=== PATIENT | male | born 1960 | race Caucasian/White ===

== ENCOUNTER 2019-08-04 23:09 | Inpatient (IN) ==
[2019-08-05] MEDS ORDERED: MethylPREDNISolone 40 MG/ML VIAL IVP ONE (01:36)
[2019-08-05] MEDS ORDERED: Albuterol 2.5 MG/3 ML NEBULIZER IH PRN (01:36)
[2019-08-05] MEDS ORDERED: Naloxone 0.4 MG/ML INJ IVP PRN ×2 (01:36→16:59)
[2019-08-05] MEDS ORDERED: Nitroglycerin 0.4 MG TAB.SUBL SL PRN ×2 (01:36→16:59)
[2019-08-05] MEDS ORDERED: *HR* Heparin 5,000 UNIT/ML VIAL IVP PRN ×3 (01:36→16:59)
[2019-08-05] MEDS ORDERED: Ondansetron ODT 4 MG TAB.RAPDIS SL PRN (01:36)
[2019-08-05] MEDS ORDERED: Aspirin 325 MG TABLET PO ONE (01:36)
[2019-08-05] MEDS ORDERED: Heparin 25,000 UNIT/250 ML D5W 25,000 UNIT/250 ML IV.SOLN IVC SCH (01:45)
[2019-08-05] MEDS ORDERED: Furosemide 40 MG/4 ML VIAL IVP SCH ×2 (01:46→08:00)
[2019-08-05] MEDS ORDERED: cefTRIAXone 1,000 MG in Water for inj. (sterile) 10 ML IVP SCH (02:00)
[2019-08-05] MEDS: *HR* OxyCODONE/APAP 10/325 TABLET PO PRN ×5 (02:04→22:15)
[2019-08-05] MEDS: Ipratropium/Albuterol Neb 3 ML IH SCH ×3 (02:23→10:57)
[2019-08-05] MEDS ORDERED: Water for inj. (sterile) 20 ML IV ONE (02:37)
[2019-08-05 02:43] LABS: ABG Base Excess 5 mEq/L (-2 to 3); ABG HCO3 33 mEq/L (21-27); ABG Oxygen Saturation 66 % (95-98); ABG PCO2 63 mmHg (35-45); ABG PH 7.33 pH Units (7.32-7.45); ABG PO2 38 mmHg (85-104); ABG TCO2 35 mEq/L (20-26)
[2019-08-05 02:46] LABS: White Blood Count 5.6 K/mcL (4.3-11.1)
[2019-08-05 02:47] LABS: Basophils % 0.4 %; Eosinophils # 0.1 K/mcL (0.0-0.6); Eosinophils % 2.2 %; Hematocrit 42.2 % (37.5-50.1); Immature Granulocytes % 0.5 % (0-4); Lymphocytes # 1.4 K/mcL (0.6-4.6); Lymphocytes % 24.4 %; Mean Corpuscular HGB Conc 30.8 g/dL (31.6-35.5); Mean Corpuscular Hemoglobin 31.7 pg (28.0-33.3); Mean Corpuscular Volume 102.9 fL (83.0-100.0); Mean Platelet Volume 9.4 fL (9.4-12.4); Monocytes # 0.5 K/mcL (0.0-1.3); Monocytes % 9.3 %; Neutrophils # 3.5 K/mcL (1.6-8.9); Platelet Count 145 K/mcL (140-400); Red Cell Distribution Width 14.4 % (11.5-14.5); Segmented Neutrophils % 63.2 %
[2019-08-05 03:05] LABS: Alanine Aminotransferase 15 Units/L (7-52); Alkaline Phosphatase 56 Units/L (34-104); Aspartate Amino Transferase 7 Units/L (13-39); BUN/Creatinine Ratio 22 (6-26); Bilirubin,Total 0.4 mg/dL (0.3-1.0); Blood Urea Nitrogen 30 mg/dL (8-23); Calcium 9.2 mg/dL (8.6-10.3); Carbon Dioxide 29 mEq/L (23-29); Chloride 98 mEq/L (98-107); Cholesterol 120 mg/dL (< 200); Glucose 109 mg/dL (70-105); HDL Cholesterol 30 mg/dL (40-59); LDL Cholesterol,Calculated 56 mg/dL (0-99); Magnesium 1.8 mg/dL (1.6-2.6); Osmolality,Calculated 287 (280-300); Phosphorous 4.2 mg/dL (2.7-4.5); Potassium 4.8 mEq/L (3.5-5.1); Sodium 135 mEq/L (136-145); Triglycerides 171 mg/dL (< 150); eGFR For African Americans > 60 (> 60); eGFR For Non-African Americans 54 (> 60)
[2019-08-05 03:31] LABS: Bilirubin,Urine Negative (Negative); Blood,Urine Negative (Negative); Clarity,Urine Clear (Clear); Color,Urine Yellow (Yellow); Glucose,Urine (UA) Normal (Normal); Ketones,Urine Negative (Negative); Leukocyte Esterase,Urine Negative (Negative); Nitrite,Urine Negative (Negative); PH,Urine 5.5 pH Units (5.0-8.0); Protein,Urine Negative (Neg-Trace); Specific Gravity,Urine 1.016 (1.010-1.025); Urobilinogen,Urine Normal (Normal)
[2019-08-05 03:43] LABS: Amphetamine Screen,Urine Negative ng/mL (Cutoff=1000); Barbiturate Screen,Urine Negative ng/mL (Cutoff=200); Benzodiazepines Screen,Urine Negative ng/mL (Cutoff=200); Cannabinoid Screen,Urine Negative ng/mL (Cutoff = 50); Cocaine Screen,Urine Negative ng/mL (Cutoff= 300); Opiate Screen,Urine Positive ng/mL (Cutoff=300); Phencyclidine Screen,Urine Negative ng/mL (Cutoff=25)
[2019-08-05] MEDS ORDERED: Perflutren Lipid Microsphere 1.3 ML in 0.9 % Sodium Chloride 8.7 ML IVP ONE (07:26)
[2019-08-05 08:59] LABS: Estimated Average Glucose 131 mg/dl
[2019-08-05] MEDS ORDERED: predniSONE 20 MG TABLET PO SCH (09:00)
[2019-08-05] MEDS ORDERED: Levalbuterol Neb 1.25 MG/3 ML IH PRN (09:57)
[2019-08-05] MEDS ORDERED: D5% in Water 1,000 ML IVC PRN (16:59)
[2019-08-05] MEDS ORDERED: Dextrose Gel 15 GM/37.5 ML TUBE PO PRN ×2 (16:59)
[2019-08-05] MEDS ORDERED: *HR* Dextrose 50 % in Water (Syg) 50 ML SYRINGE IVP PRN (16:59)
[2019-08-05] MEDS: Furosemide 40 MG/4 ML VIAL IVP SCH (18:01)
[2019-08-05] MEDS: Insulin LISPRO 300 UNITS/3 ML VIAL SQ SCH ×2 (18:05→21:33)
[2019-08-05] MEDS: Heparin 25,000 UNIT/250 ML D5W 25,000 UNIT/250 ML IV.SOLN IVC SCH ×2 (18:06→20:44)
[2019-08-05] MEDS: *HR* Heparin 5,000 UNIT/ML VIAL IVP PRN (18:13)
[2019-08-05 18:55] LABS: Estimated Average Glucose 131 mg/dl
[2019-08-05] MEDS ORDERED: cefTRIAXone 1,000 MG in 0.9 % Sodium Chloride Mini Bag 100 ML IVPB SCH (19:00)
[2019-08-05] MEDS: Budesonide/Formoterol 160/4.5 1 PUFF INH IH SCH (20:32)
[2019-08-05] MEDS: Levalbuterol Neb 1.25 MG/3 ML IH PRN (20:42)
[2019-08-06] MEDS: *HR* Heparin 5,000 UNIT/ML VIAL IVP PRN ×3 (01:34→17:07)
[2019-08-06] MEDS: *HR* OxyCODONE/APAP 10/325 TABLET PO PRN ×5 (02:18→22:52)
[2019-08-06] MEDS: Budesonide/Formoterol 160/4.5 1 PUFF INH IH SCH ×2 (07:20→20:24)
[2019-08-06] MEDS: Levalbuterol Neb 1.25 MG/3 ML IH PRN ×2 (07:20→12:45)
[2019-08-06] MEDS: predniSONE 20 MG TABLET PO SCH (08:47)
[2019-08-06] MEDS: Furosemide 40 MG/4 ML VIAL IVP SCH ×2 (08:48→17:06)
[2019-08-06] MEDS: Fluticasone Propionate Nasal 50 MCG/SPRAY BOTTLE NS SCH (08:49)
[2019-08-06] MEDS: Insulin LISPRO 300 UNITS/3 ML VIAL SQ SCH ×4 (08:50→20:49)
[2019-08-06 09:22] LABS: Hematocrit 42.6 % (37.5-50.1); Hemoglobin 13.2 g/dL (12.9-16.9); Mean Corpuscular Hemoglobin 31.9 pg (28.0-33.3); Mean Corpuscular Volume 102.9 fL (83.0-100.0); Mean Platelet Volume 9.3 fL (9.4-12.4); Platelet Count 134 K/mcL (140-400); Red Blood Count 4.14 M/mcL (4.19-5.50); Red Cell Distribution Width 14.3 % (11.5-14.5); White Blood Count 4.3 K/mcL (4.3-11.1)
[2019-08-06 09:44] LABS: BUN/Creatinine Ratio 29 (6-26); Blood Urea Nitrogen 33 mg/dL (8-23); Calcium 9.2 mg/dL (8.6-10.3); Carbon Dioxide 32 mEq/L (23-29); Chloride 97 mEq/L (98-107); Glucose 138 mg/dL (70-105); Osmolality,Calculated 295 (280-300); Potassium 4.3 mEq/L (3.5-5.1); Sodium 138 mEq/L (136-145); eGFR For African Americans > 60 (> 60); eGFR For Non-African Americans > 60 (> 60)
[2019-08-06] MEDS: Heparin 25,000 UNIT/250 ML D5W 25,000 UNIT/250 ML IV.SOLN IVC SCH ×2 (10:19→21:09)
[2019-08-06] MEDS ORDERED: NON-FORMULARY MEDICATION 1 EACH EACH (Gabapentin [Neurontin] 800 MG) PO SCH (15:15)
[2019-08-06] MEDS: Gabapentin 400 MG CAPSULE PO SCH ×2 (17:07→20:43)
[2019-08-06] MEDS ORDERED: *HR* Warfarin 5 MG TABLET PO ONE (18:00)
[2019-08-06] MEDS ORDERED: Warfarin perPT PO PRN (18:00)
[2019-08-07] MEDS: *HR* OxyCODONE/APAP 10/325 TABLET PO PRN ×5 (03:58→21:48)
[2019-08-07 04:43] LABS: ABG Base Excess 12 mEq/L (-2 to 3); ABG HCO3 40 mEq/L (21-27); ABG Oxygen Saturation 90 % (95-98); ABG PCO2 67 mmHg (35-45); ABG PH 7.39 pH Units (7.32-7.45); ABG PO2 63 mmHg (85-104); ABG TCO2 42 mEq/L (20-26)
[2019-08-07 06:20] LABS: Basophils % 0.2 %; Eosinophils # 0.1 K/mcL (0.0-0.6); Eosinophils % 1.4 %; Hemoglobin 13.3 g/dL (12.9-16.9); Immature Granulocytes % 0.5 % (0-4); Lymphocytes # 0.9 K/mcL (0.6-4.6); Lymphocytes % 21.1 %; Mean Corpuscular HGB Conc 30.2 g/dL (31.6-35.5); Mean Corpuscular Hemoglobin 31.5 pg (28.0-33.3); Mean Corpuscular Volume 104.3 fL (83.0-100.0); Monocytes # 0.5 K/mcL (0.0-1.3); Monocytes % 12.2 %; Neutrophils # 2.8 K/mcL (1.6-8.9); Platelet Count 138 K/mcL (140-400); Prothrombin Time 11.5 Seconds (9.4-12.1); Red Blood Count 4.22 M/mcL (4.19-5.50); Red Cell Distribution Width 14.4 % (11.5-14.5); Segmented Neutrophils % 64.6 %; White Blood Count 4.3 K/mcL (4.3-11.1)
[2019-08-07 06:41] LABS: BUN/Creatinine Ratio 30 (6-26); Blood Urea Nitrogen 35 mg/dL (8-23); Calcium 9.5 mg/dL (8.6-10.3); Carbon Dioxide 36 mEq/L (23-29); Chloride 97 mEq/L (98-107); Glucose 109 mg/dL (70-105); Osmolality,Calculated 301 (280-300); Potassium 4.4 mEq/L (3.5-5.1); Sodium 141 mEq/L (136-145); eGFR For African Americans > 60 (> 60); eGFR For Non-African Americans > 60 (> 60)
[2019-08-07] MEDS: Heparin 25,000 UNIT/250 ML D5W 25,000 UNIT/250 ML IV.SOLN IVC SCH (06:45)
[2019-08-07] MEDS: Budesonide/Formoterol 160/4.5 1 PUFF INH IH SCH ×2 (07:23→20:04)
[2019-08-07] MEDS: Tiotropium 18 MCG inhalation IH SCH (07:23)
[2019-08-07] MEDS: Levalbuterol Neb 1.25 MG/3 ML IH PRN (07:31)
[2019-08-07] MEDS: Azithromycin 250 MG TABLET PO SCH (09:33)
[2019-08-07] MEDS: Furosemide 40 MG/4 ML VIAL IVP SCH ×2 (09:33→17:28)
[2019-08-07] MEDS: Fluticasone Propionate Nasal 50 MCG/SPRAY BOTTLE NS SCH (09:33)
[2019-08-07] MEDS: Gabapentin 400 MG CAPSULE PO SCH ×4 (09:34→21:48)
[2019-08-07] MEDS: predniSONE 20 MG TABLET PO SCH (09:34)
[2019-08-07] MEDS: Insulin LISPRO 300 UNITS/3 ML VIAL SQ SCH ×4 (09:34→23:37)
[2019-08-07] MEDS ORDERED: *HR* Warfarin 7.5 MG TABLET PO ONE (18:00)
[2019-08-08] MEDS: Heparin 25,000 UNIT/250 ML D5W 25,000 UNIT/250 ML IV.SOLN IVC SCH ×2 (05:39→14:38)
[2019-08-08] MEDS: *HR* OxyCODONE/APAP 10/325 TABLET PO PRN ×5 (05:41→23:07)
[2019-08-08 06:20] LABS: Basophils % 0.3 %; Eosinophils % 1.2 %; Hematocrit 42.4 % (37.5-50.1); Hemoglobin 13.2 g/dL (12.9-16.9); Immature Granulocytes % 0.6 % (0-4); Lymphocytes # 0.9 K/mcL (0.6-4.6); Lymphocytes % 27.5 %; Mean Corpuscular HGB Conc 31.1 g/dL (31.6-35.5); Mean Corpuscular Hemoglobin 31.1 pg (28.0-33.3); Mean Platelet Volume 9.2 fL (9.4-12.4); Monocytes # 0.4 K/mcL (0.0-1.3); Monocytes % 10.4 %; Platelet Count 155 K/mcL (140-400); Red Blood Count 4.24 M/mcL (4.19-5.50); Red Cell Distribution Width 14.1 % (11.5-14.5); White Blood Count 3.4 K/mcL (4.3-11.1)
[2019-08-08 06:24] LABS: Prothrombin Time 11.7 Seconds (9.4-12.1)
[2019-08-08] MEDS: *HR* Heparin 5,000 UNIT/ML VIAL IVP PRN (06:41)
[2019-08-08 07:09] LABS: BUN/Creatinine Ratio 28 (6-26); Blood Urea Nitrogen 32 mg/dL (8-23); Calcium 9.5 mg/dL (8.6-10.3); Carbon Dioxide 36 mEq/L (23-29); Chloride 95 mEq/L (98-107); Glucose 101 mg/dL (70-105); Osmolality,Calculated 299 (280-300); Potassium 4.2 mEq/L (3.5-5.1); Sodium 141 mEq/L (136-145); eGFR For African Americans > 60 (> 60); eGFR For Non-African Americans > 60 (> 60)
[2019-08-08] MEDS: Tiotropium 18 MCG inhalation IH SCH (07:55)
[2019-08-08] MEDS: Budesonide/Formoterol 160/4.5 1 PUFF INH IH SCH (07:55)
[2019-08-08] MEDS: Fluticasone Propionate Nasal 50 MCG/SPRAY BOTTLE NS SCH (08:42)
[2019-08-08] MEDS: Furosemide 40 MG/4 ML VIAL IVP SCH (08:42)
[2019-08-08] MEDS: predniSONE 20 MG TABLET PO SCH (08:43)
[2019-08-08] MEDS: Azithromycin 250 MG TABLET PO SCH (08:43)
[2019-08-08] MEDS: Gabapentin 400 MG CAPSULE PO SCH ×4 (08:44→21:16)
[2019-08-08] MEDS: Insulin LISPRO 300 UNITS/3 ML VIAL SQ SCH ×4 (08:44→21:16)
[2019-08-08] MEDS ORDERED: Albuterol 2.5 MG/3 ML NEBULIZER IH PRN (09:14)
[2019-08-08] MEDS: Ipratropium/Albuterol Neb 3 ML IH SCH ×3 (11:03→20:07)
[2019-08-08] MEDS ORDERED: *HR* Warfarin 7.5 MG TABLET PO ONE (18:00)
[2019-08-09] MEDS: Ipratropium/Albuterol Neb 3 ML IH SCH ×7 (00:10→23:34)
[2019-08-09] MEDS: Budesonide/Formoterol 160/4.5 1 PUFF INH IH SCH ×3 (00:10→20:05)
[2019-08-09] MEDS: Heparin 25,000 UNIT/250 ML D5W 25,000 UNIT/250 ML IV.SOLN IVC SCH ×3 (00:14→20:43)
[2019-08-09] MEDS: *HR* OxyCODONE/APAP 10/325 TABLET PO PRN ×5 (05:25→23:29)
[2019-08-09 05:30] LABS: Basophils % 0.5 %; Eosinophils % 1.1 %; Hematocrit 42.4 % (37.5-50.1); Immature Granulocytes % 0.5 % (0-4); Mean Corpuscular HGB Conc 30.7 g/dL (31.6-35.5); Mean Corpuscular Hemoglobin 31.4 pg (28.0-33.3); Mean Corpuscular Volume 102.4 fL (83.0-100.0); Monocytes # 0.4 K/mcL (0.0-1.3); Monocytes % 9.4 %; Neutrophils # 2.2 K/mcL (1.6-8.9); Platelet Count 163 K/mcL (140-400); Red Blood Count 4.14 M/mcL (4.19-5.50); Red Cell Distribution Width 13.8 % (11.5-14.5); Segmented Neutrophils % 60.5 %; White Blood Count 3.7 K/mcL (4.3-11.1)
[2019-08-09 05:49] LABS: BUN/Creatinine Ratio 29 (6-26); Blood Urea Nitrogen 33 mg/dL (8-23); Calcium 9.6 mg/dL (8.6-10.3); Carbon Dioxide 36 mEq/L (23-29); Chloride 94 mEq/L (98-107); Glucose 124 mg/dL (70-105); Osmolality,Calculated 293 (280-300); Potassium 4.3 mEq/L (3.5-5.1); Sodium 137 mEq/L (136-145); eGFR For African Americans > 60 (> 60); eGFR For Non-African Americans > 60 (> 60)
[2019-08-09 06:03] LABS: INR 1.2; Prothrombin Time 13.3 Seconds (9.4-12.1)
[2019-08-09] MEDS: Insulin LISPRO 300 UNITS/3 ML VIAL SQ SCH ×4 (07:39→20:42)
[2019-08-09] MEDS: Azithromycin 250 MG TABLET PO SCH (07:50)
[2019-08-09] MEDS: predniSONE 20 MG TABLET PO SCH (07:50)
[2019-08-09] MEDS: Furosemide 40 MG/4 ML VIAL IVP SCH (07:50)
[2019-08-09] MEDS: Gabapentin 400 MG CAPSULE PO SCH ×4 (07:50→20:40)
[2019-08-09] MEDS: Fluticasone Propionate Nasal 50 MCG/SPRAY BOTTLE NS SCH (08:00)
[2019-08-09] MEDS: Acetylcysteine 10% 2 ML INHSOL IH SCH ×3 (15:26→23:35)
[2019-08-09 15:55] LABS: Adenovirus Not Detected (Not Detect); Bordetella Pertussis Not Detected (Not Detect); Chlamydophila pneumoniae Not Detected (Not Detect); Coronavirus 229E Not Detected (Not Detect); Coronavirus HKU1 Not Detected (Not Detect); Coronavirus NL63 Not Detected (Not Detect); Coronavirus OC43 Not Detected (Not Detect); Human Metapneumovirus Not Detected (Not Detect); Human Rhinovirus/Enterovirus Not Detected (Not Detect); Influenza A Subtype 2009 H1 Not Detected (Not Detect); Influenza B Not Detected (Not Detect); Mycoplasma pneumoniae Not Detected (Not Detect); Parainfluenza Virus 1 Not Detected (Not Detect); Parainfluenza Virus 2 Not Detected (Not Detect); Parainfluenza Virus 3 Not Detected (Not Detect); Parainfluenza Virus 4 Not Detected (Not Detect); Respiratory Syncytial Virus Not Detected (Not Detect)
[2019-08-09] MEDS ORDERED: *HR* Warfarin 7.5 MG TABLET PO ONE (18:00)
[2019-08-09] MEDS: *HR* Heparin 5,000 UNIT/ML VIAL IVP PRN (20:50)
[2019-08-09] MEDS: Piperacillin/Tazobactam 3.375 GM in 0.9 % Sodium Chloride Mini Bag 100 ML IVPB SCH (22:14)
[2019-08-10] MEDS: Ipratropium/Albuterol Neb 3 ML IH SCH ×6 (04:12→23:06)
[2019-08-10] MEDS: Acetylcysteine 10% 2 ML INHSOL IH SCH ×6 (04:12→23:07)
[2019-08-10] MEDS: *HR* OxyCODONE/APAP 10/325 TABLET PO PRN ×5 (04:56→22:36)
[2019-08-10] MEDS: Piperacillin/Tazobactam 3.375 GM in 0.9 % Sodium Chloride Mini Bag 100 ML IVPB SCH ×3 (04:56→20:49)
[2019-08-10] MEDS: Heparin 25,000 UNIT/250 ML D5W 25,000 UNIT/250 ML IV.SOLN IVC SCH ×3 (05:38→20:58)
[2019-08-10 06:16] LABS: BUN/Creatinine Ratio 33 (6-26); Blood Urea Nitrogen 34 mg/dL (8-23); Calcium 9.6 mg/dL (8.6-10.3); Carbon Dioxide 34 mEq/L (23-29); Chloride 96 mEq/L (98-107); Glucose 116 mg/dL (70-105); Osmolality,Calculated 297 (280-300); Potassium 4.6 mEq/L (3.5-5.1); Sodium 139 mEq/L (136-145); eGFR For African Americans > 60 (> 60); eGFR For Non-African Americans > 60 (> 60)
[2019-08-10 06:20] LABS: INR 1.3; Prothrombin Time 15.1 Seconds (9.4-12.1)
[2019-08-10] MEDS: Budesonide/Formoterol 160/4.5 1 PUFF INH IH SCH ×2 (07:35→20:09)
[2019-08-10] MEDS: Insulin LISPRO 300 UNITS/3 ML VIAL SQ SCH ×4 (09:30→20:50)
[2019-08-10] MEDS: Gabapentin 400 MG CAPSULE PO SCH ×4 (09:36→20:49)
[2019-08-10] MEDS: Fluticasone Propionate Nasal 50 MCG/SPRAY BOTTLE NS SCH (09:37)
[2019-08-10] MEDS: predniSONE 20 MG TABLET PO SCH (09:37)
[2019-08-10] MEDS ORDERED: *HR* Warfarin 7.5 MG TABLET PO ONE (18:00)
[2019-08-11 02:36] LABS: INR 1.5; Prothrombin Time 16.6 Seconds (9.4-12.1)
[2019-08-11 02:41] LABS: BUN/Creatinine Ratio 28 (6-26); Blood Urea Nitrogen 31 mg/dL (8-23); Calcium 9.7 mg/dL (8.6-10.3); Carbon Dioxide 32 mEq/L (23-29); Chloride 97 mEq/L (98-107); Glucose 134 mg/dL (70-105); Osmolality,Calculated 291 (280-300); Sodium 136 mEq/L (136-145); eGFR For African Americans > 60 (> 60); eGFR For Non-African Americans > 60 (> 60)
[2019-08-11] MEDS: Ipratropium/Albuterol Neb 3 ML IH SCH ×6 (04:39→23:28)
[2019-08-11] MEDS: Acetylcysteine 10% 2 ML INHSOL IH SCH ×6 (04:39→23:28)
[2019-08-11] MEDS: *HR* OxyCODONE/APAP 10/325 TABLET PO PRN ×5 (04:47→22:02)
[2019-08-11] MEDS: Piperacillin/Tazobactam 3.375 GM in 0.9 % Sodium Chloride Mini Bag 100 ML IVPB SCH ×3 (04:47→20:27)
[2019-08-11] MEDS: Heparin 25,000 UNIT/250 ML D5W 25,000 UNIT/250 ML IV.SOLN IVC SCH ×3 (04:58→22:02)
[2019-08-11] MEDS: Insulin LISPRO 300 UNITS/3 ML VIAL SQ SCH ×4 (07:17→20:28)
[2019-08-11] MEDS: predniSONE 20 MG TABLET PO SCH (07:41)
[2019-08-11] MEDS: Gabapentin 400 MG CAPSULE PO SCH ×4 (07:42→20:27)
[2019-08-11] MEDS: Fluticasone Propionate Nasal 50 MCG/SPRAY BOTTLE NS SCH (07:42)
[2019-08-11] MEDS: Budesonide/Formoterol 160/4.5 1 PUFF INH IH SCH ×2 (07:47→20:15)
[2019-08-11] MEDS: Furosemide 40 MG/4 ML VIAL IVP SCH (09:48)
[2019-08-11] MEDS ORDERED: *HR* Warfarin 7.5 MG TABLET PO ONE (18:00)
[2019-08-12] MEDS: Ipratropium/Albuterol Neb 3 ML IH SCH ×6 (04:43→23:42)
[2019-08-12] MEDS: Acetylcysteine 10% 2 ML INHSOL IH SCH ×6 (04:44→23:42)
[2019-08-12] MEDS: *HR* OxyCODONE/APAP 10/325 TABLET PO PRN ×5 (05:02→21:46)
[2019-08-12] MEDS: Piperacillin/Tazobactam 3.375 GM in 0.9 % Sodium Chloride Mini Bag 100 ML IVPB SCH (05:02)
[2019-08-12 05:36] LABS: INR 1.7; Prothrombin Time 19.2 Seconds (9.4-12.1)
[2019-08-12 05:55] LABS: BUN/Creatinine Ratio 28 (6-26); Blood Urea Nitrogen 31 mg/dL (8-23); Calcium 9.3 mg/dL (8.6-10.3); Carbon Dioxide 36 mEq/L (23-29); Chloride 96 mEq/L (98-107); Glucose 133 mg/dL (70-105); Osmolality,Calculated 294 (280-300); Potassium 4.6 mEq/L (3.5-5.1); Sodium 138 mEq/L (136-145); eGFR For African Americans > 60 (> 60); eGFR For Non-African Americans > 60 (> 60)
[2019-08-12] MEDS: Budesonide/Formoterol 160/4.5 1 PUFF INH IH SCH ×2 (07:40→20:10)
[2019-08-12] MEDS: Furosemide 40 MG/4 ML VIAL IVP SCH (08:07)
[2019-08-12] MEDS: Gabapentin 400 MG CAPSULE PO SCH ×4 (08:08→21:46)
[2019-08-12] MEDS: Insulin LISPRO 300 UNITS/3 ML VIAL SQ SCH ×4 (08:08→21:46)
[2019-08-12] MEDS: predniSONE 20 MG TABLET PO SCH (08:08)
[2019-08-12] MEDS: Fluticasone Propionate Nasal 50 MCG/SPRAY BOTTLE NS SCH (08:08)
[2019-08-12] MEDS: Heparin 25,000 UNIT/250 ML D5W 25,000 UNIT/250 ML IV.SOLN IVC SCH ×2 (08:13→18:37)
[2019-08-12] MEDS ORDERED: Piperacillin/Tazobactam 3.375 GM in 0.9 % Sodium Chloride Mini Bag 100 ML IVPB SCH (11:00)
[2019-08-12] MEDS: levoFLOXacin 750 MG TABLET PO SCH (11:30)
[2019-08-12] MEDS ORDERED: *HR* Warfarin 7.5 MG TABLET PO ONE (18:00)
[2019-08-13] MEDS: *HR* OxyCODONE/APAP 10/325 TABLET PO PRN ×5 (02:42→22:04)
[2019-08-13] MEDS: Heparin 25,000 UNIT/250 ML D5W 25,000 UNIT/250 ML IV.SOLN IVC SCH ×3 (02:43→20:34)
[2019-08-13] MEDS: Acetylcysteine 10% 2 ML INHSOL IH SCH ×6 (04:14→23:51)
[2019-08-13] MEDS: Ipratropium/Albuterol Neb 3 ML IH SCH ×6 (04:14→23:51)
[2019-08-13 05:49] LABS: Hemoglobin 13.3 g/dL (12.9-16.9); Mean Corpuscular HGB Conc 30.2 g/dL (31.6-35.5); Mean Corpuscular Hemoglobin 30.9 pg (28.0-33.3); Mean Corpuscular Volume 102.3 fL (83.0-100.0); Mean Platelet Volume 9.1 fL (9.4-12.4); Platelet Count 157 K/mcL (140-400); Red Cell Distribution Width 13.8 % (11.5-14.5); White Blood Count 4.8 K/mcL (4.3-11.1)
[2019-08-13 05:51] LABS: INR 1.7; Prothrombin Time 19.2 Seconds (9.4-12.1)
[2019-08-13 06:13] LABS: BUN/Creatinine Ratio 29 (6-26); Blood Urea Nitrogen 32 mg/dL (8-23); Calcium 9.1 mg/dL (8.6-10.3); Carbon Dioxide 35 mEq/L (23-29); Chloride 96 mEq/L (98-107); Glucose 129 mg/dL (70-105); Osmolality,Calculated 297 (280-300); Potassium 4.6 mEq/L (3.5-5.1); Sodium 139 mEq/L (136-145); eGFR For African Americans > 60 (> 60); eGFR For Non-African Americans > 60 (> 60)
[2019-08-13] MEDS: Budesonide/Formoterol 160/4.5 1 PUFF INH IH SCH ×2 (07:17→19:50)
[2019-08-13] MEDS: Furosemide 40 MG TABLET PO SCH (09:25)
[2019-08-13] MEDS: predniSONE 20 MG TABLET PO SCH (09:25)
[2019-08-13] MEDS: Gabapentin 400 MG CAPSULE PO SCH ×4 (09:25→20:33)
[2019-08-13] MEDS: levoFLOXacin 750 MG TABLET PO SCH (09:25)
[2019-08-13] MEDS: Insulin LISPRO 300 UNITS/3 ML VIAL SQ SCH ×4 (09:26→20:25)
[2019-08-13] MEDS: Fluticasone Propionate Nasal 50 MCG/SPRAY BOTTLE NS SCH (09:26)
[2019-08-13] MEDS ORDERED: *HR* Warfarin 10 MG TABLET PO ONE (18:00)
[2019-08-14 01:26] LABS: BUN/Creatinine Ratio 28 (6-26); Blood Urea Nitrogen 35 mg/dL (8-23); Calcium 9.5 mg/dL (8.6-10.3); Carbon Dioxide 33 mEq/L (23-29); Chloride 96 mEq/L (98-107); Glucose 138 mg/dL (70-105); INR 1.6; Osmolality,Calculated 292 (280-300); Potassium 5.1 mEq/L (3.5-5.1); Prothrombin Time 18.2 Seconds (9.4-12.1); Sodium 136 mEq/L (136-145); eGFR For African Americans > 60 (> 60); eGFR For Non-African Americans > 60 (> 60)
[2019-08-14] MEDS: *HR* OxyCODONE/APAP 10/325 TABLET PO PRN ×6 (02:00→22:38)
[2019-08-14] MEDS: Ipratropium/Albuterol Neb 3 ML IH SCH ×6 (03:47→23:57)
[2019-08-14] MEDS: Acetylcysteine 10% 2 ML INHSOL IH SCH ×6 (03:48→23:57)
[2019-08-14] MEDS: Heparin 25,000 UNIT/250 ML D5W 25,000 UNIT/250 ML IV.SOLN IVC SCH ×3 (05:34→22:39)
[2019-08-14] MEDS: Budesonide/Formoterol 160/4.5 1 PUFF INH IH SCH ×2 (07:38→19:47)
[2019-08-14] MEDS: predniSONE 20 MG TABLET PO SCH (07:53)
[2019-08-14] MEDS: Furosemide 40 MG TABLET PO SCH (07:53)
[2019-08-14] MEDS: levoFLOXacin 750 MG TABLET PO SCH (07:53)
[2019-08-14] MEDS: Fluticasone Propionate Nasal 50 MCG/SPRAY BOTTLE NS SCH (07:54)
[2019-08-14] MEDS: Gabapentin 400 MG CAPSULE PO SCH ×4 (07:54→19:57)
[2019-08-14] MEDS: Insulin LISPRO 300 UNITS/3 ML VIAL SQ SCH ×4 (07:54→20:00)
[2019-08-14] MEDS ORDERED: *HR* Warfarin 10 MG TABLET PO ONE (18:00)
[2019-08-15 00:32] LABS: Basophils % 0.4 %; Eosinophils % 0.6 %; Hematocrit 43.5 % (37.5-50.1); Hemoglobin 13.7 g/dL (12.9-16.9); Immature Granulocytes % 2.1 % (0-4); Lymphocytes # 0.9 K/mcL (0.6-4.6); Lymphocytes % 13.5 %; Mean Corpuscular HGB Conc 31.5 g/dL (31.6-35.5); Mean Corpuscular Hemoglobin 31.4 pg (28.0-33.3); Mean Corpuscular Volume 99.5 fL (83.0-100.0); Mean Platelet Volume 9.2 fL (9.4-12.4); Monocytes # 0.7 K/mcL (0.0-1.3); Platelet Count 177 K/mcL (140-400); Red Blood Count 4.37 M/mcL (4.19-5.50); Red Cell Distribution Width 13.7 % (11.5-14.5); Segmented Neutrophils % 73.4 %; White Blood Count 6.8 K/mcL (4.3-11.1)
[2019-08-15 00:36] LABS: INR 1.8
[2019-08-15 00:51] LABS: BUN/Creatinine Ratio 31 (6-26); Blood Urea Nitrogen 33 mg/dL (8-23); Calcium 9.2 mg/dL (8.6-10.3); Carbon Dioxide 34 mEq/L (23-29); Chloride 96 mEq/L (98-107); Glucose 138 mg/dL (70-105); Osmolality,Calculated 291 (280-300); Potassium 4.7 mEq/L (3.5-5.1); Sodium 136 mEq/L (136-145); eGFR For African Americans > 60 (> 60); eGFR For Non-African Americans > 60 (> 60)
[2019-08-15] MEDS: *HR* OxyCODONE/APAP 10/325 TABLET PO PRN ×4 (02:55→17:22)
[2019-08-15] MEDS: Ipratropium/Albuterol Neb 3 ML IH SCH ×4 (03:47→15:30)
[2019-08-15] MEDS: Acetylcysteine 10% 2 ML INHSOL IH SCH ×4 (03:47→15:30)
[2019-08-15] MEDS: Budesonide/Formoterol 160/4.5 1 PUFF INH IH SCH (07:25)
[2019-08-15] MEDS: Insulin LISPRO 300 UNITS/3 ML VIAL SQ SCH ×3 (07:31→15:25)
[2019-08-15] MEDS: levoFLOXacin 750 MG TABLET PO SCH (07:32)
[2019-08-15] MEDS: Furosemide 40 MG TABLET PO SCH (07:32)
[2019-08-15] MEDS: Gabapentin 400 MG CAPSULE PO SCH ×3 (07:32→17:22)
[2019-08-15] MEDS: Fluticasone Propionate Nasal 50 MCG/SPRAY BOTTLE NS SCH (07:37)
[2019-08-15] MEDS ORDERED: predniSONE 20 MG TABLET PO SCH (09:00)
[2019-08-15 15:12] VITALS: BP 120/73
[2019-08-15] MEDS ORDERED: *HR* Warfarin 10 MG TABLET PO ONE (18:00)
== END 2019-08-15 19:26 | disposition home health service (06) | DRG 291 ==
LOC: ICNU → SUATTDRO 08-05 00:20 → 2ANU 08-05 15:38 → SUATTDRO 08-07 20:14
PROVIDERS: ADMIT Family Medicine; ATTEND Internal Medicine

== ENCOUNTER 2019-08-27 20:39 | Inpatient (IN) ==
[2019-08-27] MEDS ORDERED: 0.9 % Sodium Chloride 1,000 ML ONE ×2 (22:23→23:49)
[2019-08-27] MEDS ORDERED: Albumin 25% 25gram/100mL 25 GM/100 ML IV.SOLN IVPB ONE (23:10)
[2019-08-27] MEDS ORDERED: Naloxone 0.4 MG/ML INJ IVP PRN (23:16)
[2019-08-27] MEDS ORDERED: Acetaminophen 325 MG TABLET PO PRN (23:21)
[2019-08-27] MEDS ORDERED: Albumin 25% 25gram/100mL 25 GM/100 ML IV.SOLN ONE (23:49)
[2019-08-28 01:36] LABS: Basophils % 0.5 %; Eosinophils # 0.1 K/mcL (0.0-0.6); Eosinophils % 2.7 %; Hematocrit 40.1 % (37.5-50.1); Hemoglobin 12.6 g/dL (12.9-16.9); Lymphocytes % 27.6 %; Mean Corpuscular HGB Conc 31.4 g/dL (31.6-35.5); Mean Corpuscular Volume 98.8 fL (83.0-100.0); Mean Platelet Volume 9.7 fL (9.4-12.4); Monocytes # 0.3 K/mcL (0.0-1.3); Monocytes % 8.8 %; Neutrophils # 2.3 K/mcL (1.6-8.9); Platelet Count 109 K/mcL (140-400); Red Blood Count 4.06 M/mcL (4.19-5.50); Red Cell Distribution Width 13.6 % (11.5-14.5); Segmented Neutrophils % 60.4 %; White Blood Count 3.7 K/mcL (4.3-11.1)
[2019-08-28 01:39] LABS: Activated Partial Thrombo Time 61.4 Seconds (26.0-36.0)
[2019-08-28 01:40] LABS: Prothrombin Time 57.4 Seconds (9.4-12.1)
[2019-08-28 01:54] LABS: Alanine Aminotransferase 14 Units/L (7-52); Albumin 4.1 g/dL (3.5-5.7); Albumin/Globulin Ratio 1.7 (1.1-2.2); Alkaline Phosphatase 73 Units/L (34-104); Aspartate Amino Transferase 6 Units/L (13-39); BUN/Creatinine Ratio 32 (6-26); Bilirubin,Total 0.3 mg/dL (0.3-1.0); Blood Urea Nitrogen 45 mg/dL (8-23); Calcium 8.7 mg/dL (8.6-10.3); Carbon Dioxide 28 mEq/L (23-29); Chloride 98 mEq/L (98-107); Globulin 2.4 g/dL (2.4-3.5); Glucose 105 mg/dL (70-105); Osmolality,Calculated 290 (280-300); Potassium 4.5 mEq/L (3.5-5.1); Sodium 134 mEq/L (136-145); Total Protein 6.5 g/dL (6.4-8.9); eGFR For African Americans > 60 (> 60); eGFR For Non-African Americans 51 (> 60)
[2019-08-28 01:57] LABS: Troponin I < 0.03 ng/mL (< 0.04)
[2019-08-28] MEDS ORDERED: Amiodarone Premix 360 MG/200 ML BAG IVC ONE (04:12)
[2019-08-28] MEDS ORDERED: Amiodarone Premix 360 MG/200 ML BAG IVC SCH (04:15)
[2019-08-28] MEDS: DilTIAZem 50 MG in 0.9 % Sodium Chloride 40 ML IVC SCH (04:16)
[2019-08-28] MEDS ORDERED: D5% in Water 1,000 ML IVC PRN (05:54)
[2019-08-28] MEDS ORDERED: Dextrose Gel 15 GM/37.5 ML TUBE PO PRN ×2 (05:54)
[2019-08-28] MEDS ORDERED: *HR* Dextrose 50 % in Water (Syg) 50 ML SYRINGE IVP PRN (05:54)
[2019-08-28] MEDS ORDERED: *HR* Digoxin 0.5 MG/2 ML AMPUL IVP ONE (06:24)
[2019-08-28] MEDS: Insulin LISPRO 300 UNITS/3 ML VIAL SQ SCH ×3 (06:35→18:17)
[2019-08-28] MEDS: Amiodarone Premix 360 MG/200 ML BAG IVC SCH (10:04)
[2019-08-28] MEDS: *HR* OxyCODONE/APAP 10/325 TABLET PO PRN ×3 (10:51→20:12)
[2019-08-28] MEDS: Levalbuterol Neb 1.25 MG/3 ML IH SCH ×3 (11:07→22:49)
[2019-08-28] MEDS ORDERED: MethylPREDNISolone 40 MG/ML VIAL IVP SCH (12:50)
[2019-08-28] MEDS ORDERED: Fluticasone Propionate Nasal 50 MCG/SPRAY BOTTLE NS PRN (15:27)
[2019-08-28] MEDS ORDERED: Acetylcysteine 10% 2 ML INHSOL IH PRN (15:27)
[2019-08-28] MEDS ORDERED: Nitroglycerin 0.4 MG TAB.SUBL SL PRN (15:27)
[2019-08-28] MEDS ORDERED: Levalbuterol Neb 1.25 MG/3 ML ONE (15:29)
[2019-08-28] MEDS: Gabapentin 400 MG CAPSULE PO SCH ×2 (16:01→20:08)
[2019-08-28 18:13] LABS: VBG HCO3 31 mEq/L (21-27); VBG PCO2 59 mmHg (41-51); VBG PH 7.33 pH Units (7.32-7.42); VBG PO2 45 mmHg (25-50)
[2019-08-28] MEDS: Budesonide/Formoterol 160/4.5 1 PUFF INH IH SCH (22:49)
[2019-08-29] MEDS: *HR* OxyCODONE/APAP 10/325 TABLET PO PRN ×6 (00:12→23:56)
[2019-08-29] MEDS: Insulin LISPRO 300 UNITS/3 ML VIAL SQ SCH ×5 (00:18→23:58)
[2019-08-29 02:42] LABS: Basophils % 0.3 %; Hematocrit 40.5 % (37.5-50.1); Hemoglobin 13.1 g/dL (12.9-16.9); INR 2.8; Immature Granulocytes % 0.3 % (0-4); Lymphocytes # 0.2 K/mcL (0.6-4.6); Lymphocytes % 6.3 %; Mean Corpuscular HGB Conc 32.3 g/dL (31.6-35.5); Mean Corpuscular Hemoglobin 31.1 pg (28.0-33.3); Mean Corpuscular Volume 96.2 fL (83.0-100.0); Mean Platelet Volume 10.5 fL (9.4-12.4); Monocytes # 0.2 K/mcL (0.0-1.3); Monocytes % 6.6 %; Neutrophils # 3.2 K/mcL (1.6-8.9); Platelet Count 128 K/mcL (140-400); Prothrombin Time 32.1 Seconds (9.4-12.1); Red Blood Count 4.21 M/mcL (4.19-5.50); Red Cell Distribution Width 13.3 % (11.5-14.5); Segmented Neutrophils % 86.5 %; White Blood Count 3.6 K/mcL (4.3-11.1)
[2019-08-29 02:51] LABS: BUN/Creatinine Ratio 32 (6-26); Blood Urea Nitrogen 40 mg/dL (8-23); Calcium 8.4 mg/dL (8.6-10.3); Carbon Dioxide 29 mEq/L (23-29); Chloride 97 mEq/L (98-107); Glucose 133 mg/dL (70-105); Osmolality,Calculated 288 (280-300); Potassium 5.5 mEq/L (3.5-5.1); Sodium 133 mEq/L (136-145); eGFR For African Americans > 60 (> 60); eGFR For Non-African Americans 59 (> 60)
[2019-08-29] MEDS: DilTIAZem 50 MG in 0.9 % Sodium Chloride 40 ML IVC SCH (04:20)
[2019-08-29] MEDS: Gabapentin 400 MG CAPSULE PO SCH ×4 (04:23→20:31)
[2019-08-29] MEDS: Doxycycline 100 MG in 0.9 % Sodium Chloride Mini Bag 100 ML IVPB SCH ×2 (04:24→18:32)
[2019-08-29] MEDS: MethylPREDNISolone 40 MG/ML VIAL IVP SCH ×2 (04:24→18:32)
[2019-08-29] MEDS: Levalbuterol Neb 1.25 MG/3 ML IH SCH ×3 (07:35→21:51)
[2019-08-29] MEDS: Budesonide/Formoterol 160/4.5 1 PUFF INH IH SCH ×2 (07:35→21:51)
[2019-08-29] MEDS: Amiodarone Premix 360 MG/200 ML BAG IVC SCH ×2 (08:04→20:13)
[2019-08-29 08:48] LABS: Adenovirus Not Detected (Not Detect); Bordetella Pertussis Not Detected (Not Detect); Chlamydophila pneumoniae Not Detected (Not Detect); Coronavirus 229E Not Detected (Not Detect); Coronavirus HKU1 Not Detected (Not Detect); Coronavirus NL63 Not Detected (Not Detect); Coronavirus OC43 Not Detected (Not Detect); Human Metapneumovirus Not Detected (Not Detect); Human Rhinovirus/Enterovirus Not Detected (Not Detect); Influenza A Subtype 2009 H1 Not Detected (Not Detect); Influenza B Not Detected (Not Detect); Mycoplasma pneumoniae Not Detected (Not Detect); Parainfluenza Virus 1 Not Detected (Not Detect); Parainfluenza Virus 2 Not Detected (Not Detect); Parainfluenza Virus 3 Not Detected (Not Detect); Parainfluenza Virus 4 Not Detected (Not Detect); Respiratory Syncytial Virus Not Detected (Not Detect)
[2019-08-29] MEDS ORDERED: (Roflumilast [Daliresp] 500 MCG) PO SCH (09:00)
[2019-08-29] MEDS ORDERED: Furosemide 20 MG/2 ML VIAL IVP ONE (11:26)
[2019-08-29] MEDS ORDERED: *HR* Warfarin 10 MG TABLET PO ONE (18:00)
[2019-08-29] MEDS ORDERED: Warfarin perPT PO PRN (18:00)
[2019-08-30] MEDS: Gabapentin 400 MG CAPSULE PO SCH ×4 (02:55→20:42)
[2019-08-30] MEDS ORDERED: *HR* LORazepam 2 MG/ML VIAL IVP ONE (03:05)
[2019-08-30] MEDS: Levalbuterol Neb 1.25 MG/3 ML IH SCH ×5 (03:17→23:29)
[2019-08-30 03:18] LABS: ABG Base Excess 1 mEq/L (-2 to 3); ABG HCO3 32 mEq/L (21-27); ABG Oxygen Saturation 92 % (95-98); ABG PCO2 81 mmHg (35-45); ABG PH 7.21 pH Units (7.32-7.45); ABG PO2 81 mmHg (85-104); ABG TCO2 35 mEq/L (20-26)
[2019-08-30 04:27] LABS: Basophils % 0.1 %; Hematocrit 43.4 % (37.5-50.1); Hemoglobin 13.7 g/dL (12.9-16.9); Immature Granulocytes % 0.6 % (0-4); Lymphocytes # 0.3 K/mcL (0.6-4.6); Lymphocytes % 3.6 %; Mean Corpuscular HGB Conc 31.6 g/dL (31.6-35.5); Mean Corpuscular Hemoglobin 31.1 pg (28.0-33.3); Mean Corpuscular Volume 98.4 fL (83.0-100.0); Mean Platelet Volume 9.8 fL (9.4-12.4); Monocytes # 0.4 K/mcL (0.0-1.3); Monocytes % 5.7 %; Neutrophils # 6.5 K/mcL (1.6-8.9); Platelet Count 128 K/mcL (140-400); Red Blood Count 4.41 M/mcL (4.19-5.50); Red Cell Distribution Width 13.5 % (11.5-14.5)
[2019-08-30 04:28] LABS: White Blood Count 7.2 K/mcL (4.3-11.1)
[2019-08-30 04:33] LABS: ABG Base Excess 3 mEq/L (-2 to 3); ABG HCO3 34 mEq/L (21-27); ABG Oxygen Saturation 98 % (95-98); ABG PCO2 77 mmHg (35-45); ABG PH 7.25 pH Units (7.32-7.45); ABG PO2 124 mmHg (85-104); ABG TCO2 36 mEq/L (20-26)
[2019-08-30 04:38] LABS: INR 2.1; Prothrombin Time 23.9 Seconds (9.4-12.1)
[2019-08-30 04:56] LABS: Calcium 8.4 mg/dL (8.6-10.3); Potassium 6.2 mEq/L (3.5-5.1)
[2019-08-30] MEDS ORDERED: Insulin Human Regular 10 UNIT in 0.9 % Sodium Chloride 10 ML IV ONE (05:22)
[2019-08-30] MEDS ORDERED: *HR* Dextrose 50 % in Water (Syg) 50 ML SYRINGE IVP ONE (05:24)
[2019-08-30] MEDS ORDERED: Furosemide 20 MG/2 ML VIAL IVP ONE (05:24)
[2019-08-30] MEDS: MethylPREDNISolone 40 MG/ML VIAL IVP SCH ×2 (05:44→18:42)
[2019-08-30] MEDS: Doxycycline 100 MG in 0.9 % Sodium Chloride Mini Bag 100 ML IVPB SCH ×2 (05:44→18:43)
[2019-08-30] MEDS: *HR* OxyCODONE/APAP 10/325 TABLET PO PRN ×2 (05:45→21:32)
[2019-08-30] MEDS ORDERED: Calcium Gluconate 1gm/50mL 1 GM/50 ML BAG IVPB ONE (06:00)
[2019-08-30] MEDS: Insulin LISPRO 300 UNITS/3 ML VIAL SQ SCH ×3 (06:31→18:44)
[2019-08-30] MEDS: Amiodarone Premix 360 MG/200 ML BAG IVC SCH ×2 (07:09→18:42)
[2019-08-30] MEDS ORDERED: Furosemide 60 MG in 0.9 % Sodium Chloride 50 ML IV ONE (10:00)
[2019-08-30 10:28] LABS: Calcium 8.6 mg/dL (8.6-10.3); Potassium 6.3 mEq/L (3.5-5.1)
[2019-08-30] MEDS ORDERED: *HR* LORazepam 2 MG/ML VIAL ONE (10:34)
[2019-08-30 10:51] LABS: ABG Base Excess 0 mEq/L (-2 to 3); ABG HCO3 31 mEq/L (21-27); ABG Oxygen Saturation 91 % (95-98); ABG PCO2 76 mmHg (35-45); ABG PH 7.22 pH Units (7.32-7.45); ABG PO2 75 mmHg (85-104); ABG TCO2 33 mEq/L (20-26)
[2019-08-30] MEDS: Budesonide/Formoterol 160/4.5 1 PUFF INH IH SCH (10:52)
[2019-08-30] MEDS: Ipratropium Neb 0.5 MG NEBULIZER IH SCH ×4 (10:55→23:29)
[2019-08-30] MEDS: *HR* LORazepam 2 MG/ML VIAL IVP PRN (10:56)
[2019-08-30] MEDS ORDERED: Dexmedetomidine HCl 400 MCG/100 ML MLS IVC ONE (12:08)
[2019-08-30] MEDS ORDERED: *HR* Metoprolol 5 MG/5 ML VIAL IVP ONE ×2 (12:08→12:53)
[2019-08-30] MEDS: Dexmedetomidine HCl 400 MCG/100 ML MLS IVC SCH ×2 (12:20→18:43)
[2019-08-30 12:29] LABS: Calcium 8.6 mg/dL (8.6-10.3); Potassium 5.4 mEq/L (3.5-5.1)
[2019-08-30 14:40] LABS: ABG Base Excess 4 mEq/L (-2 to 3); ABG HCO3 34 mEq/L (21-27); ABG Oxygen Saturation 96 % (95-98); ABG PCO2 72 mmHg (35-45); ABG PH 7.28 pH Units (7.32-7.45); ABG PO2 97 mmHg (85-104); ABG TCO2 36 mEq/L (20-26)
[2019-08-30 14:58] LABS: Total Volume 24 Hour,Urine 1.18 Liters (0.80-1.80)
[2019-08-30 15:09] LABS: Sodium, Urine 21.3 mEq/L
[2019-08-30 15:45] LABS: Bilirubin,Urine Negative (Negative); Blood,Urine Large (Negative); Clarity,Urine Clear (Clear); Color,Urine Yellow (Yellow); Glucose,Urine (UA) Normal (Normal); Ketones,Urine Negative (Negative); Leukocyte Esterase,Urine Trace (Negative); Nitrite,Urine Negative (Negative); Protein,Urine 30 mg/dL (Neg-Trace); Specific Gravity,Urine 1.023 (1.010-1.025); Urobilinogen,Urine Normal (Normal)
[2019-08-30 15:54] LABS: RBC,Urine TNTC per hpf (0-3); Squamous Epithelial Cell,Urine Few per lpf (None-Few); WBC,Urine 0-3 per hpf (0-3)
[2019-08-30 15:55] LABS: Bacteria,Urine None Seen per hpf (None-Few); Hyaline Casts,Urine None Seen per lpf (None-Few)
[2019-08-30 16:07] LABS: Creatinine,Urine 97 mg/dL; Microalbum/Creatinine Ratio,Ur 57 mcg/mg (Less than 30); Microalbumin,Urine 55 mg/L; Sodium, Urine < 10.0 mEq/L
[2019-08-30] MEDS: SODIUM ZIRCONIUM CYCLOSILICATE 5 GM POWD.PACK PO SCH (16:18)
[2019-08-30] MEDS ORDERED: *HR* Warfarin 5 MG TABLET PO ONE (18:00)
[2019-08-30] MEDS: Furosemide 60 MG in 0.9 % Sodium Chloride 50 ML IV SCH (20:42)
[2019-08-31] MEDS: Dexmedetomidine HCl 400 MCG/100 ML MLS IVC SCH ×6 (00:19→22:39)
[2019-08-31] MEDS: Insulin LISPRO 300 UNITS/3 ML VIAL SQ SCH ×5 (00:21→18:40)
[2019-08-31] MEDS: Ipratropium Neb 0.5 MG NEBULIZER IH SCH ×5 (03:31→19:24)
[2019-08-31] MEDS: Levalbuterol Neb 1.25 MG/3 ML IH SCH ×5 (03:31→19:24)
[2019-08-31] MEDS: *HR* OxyCODONE/APAP 10/325 TABLET PO PRN ×4 (03:39→20:49)
[2019-08-31] MEDS: Gabapentin 400 MG CAPSULE PO SCH ×4 (03:39→20:49)
[2019-08-31 04:35] LABS: Hematocrit 39.9 % (37.5-50.1); Hemoglobin 12.4 g/dL (12.9-16.9); Immature Platelets 3.6 % (1.1-6.1); Mean Corpuscular HGB Conc 31.1 g/dL (31.6-35.5); Mean Corpuscular Hemoglobin 30.9 pg (28.0-33.3); Mean Corpuscular Volume 99.5 fL (83.0-100.0); Mean Platelet Volume 10.1 fL (9.4-12.4); Red Blood Count 4.01 M/mcL (4.19-5.50); Red Cell Distribution Width 13.4 % (11.5-14.5); White Blood Count 3.2 K/mcL (4.3-11.1)
[2019-08-31 04:36] LABS: INR 2.9; Prothrombin Time 32.7 Seconds (9.4-12.1)
[2019-08-31 04:55] LABS: BUN/Creatinine Ratio 39 (6-26); Blood Urea Nitrogen 47 mg/dL (8-23); Calcium 7.8 mg/dL (8.6-10.3); Carbon Dioxide 36 mEq/L (23-29); Chloride 93 mEq/L (98-107); Glucose 106 mg/dL (70-105); Magnesium 2.5 mg/dL (1.6-2.6); Osmolality,Calculated 293 (280-300); Potassium 4.4 mEq/L (3.5-5.1); Sodium 135 mEq/L (136-145); eGFR For African Americans > 60 (> 60); eGFR For Non-African Americans > 60 (> 60)
[2019-08-31] MEDS: MethylPREDNISolone 40 MG/ML VIAL IVP SCH ×2 (05:25→16:05)
[2019-08-31] MEDS: Doxycycline 100 MG in 0.9 % Sodium Chloride Mini Bag 100 ML IVPB SCH ×2 (05:26→16:05)
[2019-08-31] MEDS: Amiodarone Premix 360 MG/200 ML BAG IVC SCH (06:26)
[2019-08-31] MEDS: SODIUM ZIRCONIUM CYCLOSILICATE 5 GM POWD.PACK PO SCH (10:02)
[2019-08-31] MEDS: Furosemide 60 MG in 0.9 % Sodium Chloride 50 ML IV SCH ×2 (10:03→20:49)
[2019-08-31] MEDS ORDERED: Insulin LISPRO 300 UNITS/3 ML VIAL SQ SCH (21:00)
[2019-09-01] MEDS: Levalbuterol Neb 1.25 MG/3 ML IH SCH ×6 (00:06→19:44)
[2019-09-01] MEDS: Ipratropium Neb 0.5 MG NEBULIZER IH SCH ×6 (00:06→19:44)
[2019-09-01] MEDS: *HR* OxyCODONE/APAP 10/325 TABLET PO PRN ×5 (01:04→18:32)
[2019-09-01] MEDS: *HR* LORazepam 2 MG/ML VIAL IVP PRN ×2 (01:04→10:50)
[2019-09-01] MEDS: Gabapentin 400 MG CAPSULE PO SCH ×4 (03:20→20:44)
[2019-09-01 03:49] LABS: Hematocrit 38.2 % (37.5-50.1); Hemoglobin 12.5 g/dL (12.9-16.9); Mean Corpuscular HGB Conc 32.7 g/dL (31.6-35.5); Mean Corpuscular Hemoglobin 30.7 pg (28.0-33.3); Mean Corpuscular Volume 93.9 fL (83.0-100.0); Mean Platelet Volume 9.9 fL (9.4-12.4); Platelet Count 144 K/mcL (140-400); Red Blood Count 4.07 M/mcL (4.19-5.50); Red Cell Distribution Width 13.6 % (11.5-14.5)
[2019-09-01 03:51] LABS: White Blood Count 5.8 K/mcL (4.3-11.1)
[2019-09-01 03:53] LABS: INR 4.2
[2019-09-01 03:55] LABS: Prothrombin Time 47.6 Seconds (9.4-12.1)
[2019-09-01 04:04] LABS: Calcium 7.9 mg/dL (8.6-10.3); Magnesium 2.5 mg/dL (1.6-2.6); Potassium 4.3 mEq/L (3.5-5.1)
[2019-09-01] MEDS: Dexmedetomidine HCl 400 MCG/100 ML MLS IVC SCH ×2 (05:15→08:40)
[2019-09-01] MEDS: MethylPREDNISolone 40 MG/ML VIAL IVP SCH (05:18)
[2019-09-01] MEDS: Doxycycline 100 MG in 0.9 % Sodium Chloride Mini Bag 100 ML IVPB SCH ×2 (05:18→18:33)
[2019-09-01] MEDS: Insulin LISPRO 300 UNITS/3 ML VIAL SQ SCH ×5 (08:33→20:46)
[2019-09-01] MEDS: Furosemide 60 MG in 0.9 % Sodium Chloride 50 ML IV SCH (08:38)
[2019-09-01] MEDS ORDERED: predniSONE 20 MG TABLET PO SCH (09:00)
[2019-09-01] MEDS ORDERED: Sennosides/Docusate Sodium TABLET PO SCH (09:00)
[2019-09-01] MEDS ORDERED: DilTIAZem CD (24hr) 240 MG CAP.ER.24H PO SCH (10:30)
[2019-09-01] MEDS ORDERED: Fluticasone Propionate Nasal 50 MCG/SPRAY BOTTLE NS PRN (10:53)
[2019-09-01] MEDS ORDERED: *HR* Dextrose 50 % in Water (Syg) 50 ML SYRINGE IVP PRN (10:53)
[2019-09-01] MEDS ORDERED: Dextrose Gel 15 GM/37.5 ML TUBE PO PRN ×2 (10:53)
[2019-09-01] MEDS ORDERED: Warfarin perPT PO PRN (10:53)
[2019-09-01] MEDS ORDERED: Acetaminophen 325 MG TABLET PO PRN (10:53)
[2019-09-01] MEDS ORDERED: Nitroglycerin 0.4 MG TAB.SUBL SL PRN (10:53)
[2019-09-01] MEDS ORDERED: D5% in Water 1,000 ML IVC PRN (10:53)
[2019-09-01] MEDS ORDERED: Naloxone 0.4 MG/ML INJ IVP PRN (10:53)
[2019-09-01] MEDS ORDERED: Furosemide 40 MG TABLET PO SCH (17:00)
[2019-09-01] MEDS: Furosemide 40 MG TABLET PO SCH (18:32)
[2019-09-01] MEDS: Sennosides/Docusate Sodium TABLET PO SCH (20:44)
[2019-09-02] MEDS: Levalbuterol Neb 1.25 MG/3 ML IH SCH ×7 (00:06→23:19)
[2019-09-02] MEDS: Ipratropium Neb 0.5 MG NEBULIZER IH SCH ×7 (00:07→23:19)
[2019-09-02] MEDS: *HR* LORazepam 2 MG/ML VIAL IVP PRN (00:48)
[2019-09-02] MEDS: *HR* OxyCODONE/APAP 10/325 TABLET PO PRN ×4 (00:48→22:10)
[2019-09-02] MEDS: Gabapentin 400 MG CAPSULE PO SCH ×4 (03:24→22:09)
[2019-09-02 03:52] LABS: Hemoglobin 12.8 g/dL (12.9-16.9); Mean Corpuscular HGB Conc 32.8 g/dL (31.6-35.5); Mean Corpuscular Hemoglobin 30.8 pg (28.0-33.3); Mean Corpuscular Volume 93.8 fL (83.0-100.0); Platelet Count 141 K/mcL (140-400); Red Blood Count 4.16 M/mcL (4.19-5.50); Red Cell Distribution Width 13.4 % (11.5-14.5); White Blood Count 4.8 K/mcL (4.3-11.1)
[2019-09-02 03:59] LABS: INR 2.2; Prothrombin Time 25.2 Seconds (9.4-12.1)
[2019-09-02 04:11] LABS: BUN/Creatinine Ratio 45 (6-26); Blood Urea Nitrogen 60 mg/dL (8-23); Calcium 8.1 mg/dL (8.6-10.3); Carbon Dioxide 34 mEq/L (23-29); Chloride 96 mEq/L (98-107); Glucose 116 mg/dL (70-105); Magnesium 2.5 mg/dL (1.6-2.6); Osmolality,Calculated 300 (280-300); Potassium 4.5 mEq/L (3.5-5.1); Sodium 136 mEq/L (136-145); eGFR For African Americans > 60 (> 60); eGFR For Non-African Americans 54 (> 60)
[2019-09-02] MEDS: Doxycycline 100 MG in 0.9 % Sodium Chloride Mini Bag 100 ML IVPB SCH ×2 (06:23→18:59)
[2019-09-02] MEDS: Sennosides/Docusate Sodium TABLET PO SCH ×2 (09:02→22:09)
[2019-09-02] MEDS: DilTIAZem CD (24hr) 240 MG CAP.ER.24H PO SCH (09:06)
[2019-09-02] MEDS: Furosemide 40 MG TABLET PO SCH ×2 (09:07→15:53)
[2019-09-02] MEDS: predniSONE 20 MG TABLET PO SCH (09:07)
[2019-09-02] MEDS: Insulin LISPRO 300 UNITS/3 ML VIAL SQ SCH ×4 (09:16→22:13)
[2019-09-02] MEDS ORDERED: *HR* Warfarin 10 MG TABLET PO ONE (18:00)
[2019-09-03] MEDS: *HR* LORazepam 2 MG/ML VIAL IVP PRN (00:42)
[2019-09-03] MEDS: Gabapentin 400 MG CAPSULE PO SCH ×4 (03:17→22:16)
[2019-09-03] MEDS: Levalbuterol Neb 1.25 MG/3 ML IH SCH ×6 (03:32→23:40)
[2019-09-03] MEDS: Ipratropium Neb 0.5 MG NEBULIZER IH SCH ×6 (03:32→23:40)
[2019-09-03 03:52] LABS: Hematocrit 40.1 % (37.5-50.1); Hemoglobin 12.7 g/dL (12.9-16.9); Mean Corpuscular HGB Conc 31.7 g/dL (31.6-35.5); Mean Corpuscular Hemoglobin 31.1 pg (28.0-33.3); Mean Corpuscular Volume 98.3 fL (83.0-100.0); Mean Platelet Volume 9.3 fL (9.4-12.4); Platelet Count 124 K/mcL (140-400); Red Blood Count 4.08 M/mcL (4.19-5.50); Red Cell Distribution Width 13.2 % (11.5-14.5); White Blood Count 4.2 K/mcL (4.3-11.1)
[2019-09-03 03:53] LABS: INR 1.6; Prothrombin Time 18.5 Seconds (9.4-12.1)
[2019-09-03 04:09] LABS: BUN/Creatinine Ratio 43 (6-26); Blood Urea Nitrogen 50 mg/dL (8-23); Calcium 8.1 mg/dL (8.6-10.3); Carbon Dioxide 33 mEq/L (23-29); Chloride 100 mEq/L (98-107); Glucose 99 mg/dL (70-105); Magnesium 2.1 mg/dL (1.6-2.6); Osmolality,Calculated 305 (280-300); Sodium 141 mEq/L (136-145); eGFR For African Americans > 60 (> 60); eGFR For Non-African Americans > 60 (> 60)
[2019-09-03] MEDS: *HR* OxyCODONE/APAP 10/325 TABLET PO PRN ×4 (05:18→22:16)
[2019-09-03] MEDS: Doxycycline 100 MG in 0.9 % Sodium Chloride Mini Bag 100 ML IVPB SCH ×2 (05:19→18:52)
[2019-09-03] MEDS: DilTIAZem CD (24hr) 240 MG CAP.ER.24H PO SCH (08:19)
[2019-09-03] MEDS: Furosemide 40 MG TABLET PO SCH ×2 (08:20→16:18)
[2019-09-03] MEDS: predniSONE 20 MG TABLET PO SCH (08:20)
[2019-09-03] MEDS: Sennosides/Docusate Sodium TABLET PO SCH ×2 (08:20→22:16)
[2019-09-03] MEDS: Insulin LISPRO 300 UNITS/3 ML VIAL SQ SCH ×4 (08:21→21:48)
[2019-09-03] MEDS ORDERED: *HR* Digoxin 0.5 MG/2 ML AMPUL IVP SCH (14:17)
[2019-09-03] MEDS ORDERED: *HR* Warfarin 10 MG TABLET PO ONE (18:00)
[2019-09-03] MEDS: *HR* Digoxin 0.5 MG/2 ML AMPUL IVP SCH (22:14)
[2019-09-04] MEDS: *HR* LORazepam 2 MG/ML VIAL IVP PRN (00:51)
[2019-09-04] MEDS: Gabapentin 400 MG CAPSULE PO SCH ×4 (04:05→23:05)
[2019-09-04] MEDS: *HR* Digoxin 0.5 MG/2 ML AMPUL IVP SCH ×2 (04:05→10:36)
[2019-09-04] MEDS: Ipratropium Neb 0.5 MG NEBULIZER IH SCH ×5 (04:13→19:52)
[2019-09-04] MEDS: Levalbuterol Neb 1.25 MG/3 ML IH SCH ×5 (04:14→19:52)
[2019-09-04 05:05] LABS: Hematocrit 41.8 % (37.5-50.1); Mean Corpuscular HGB Conc 31.1 g/dL (31.6-35.5); Mean Corpuscular Hemoglobin 31.1 pg (28.0-33.3); Mean Platelet Volume 9.8 fL (9.4-12.4); Platelet Count 142 K/mcL (140-400); Red Blood Count 4.18 M/mcL (4.19-5.50); Red Cell Distribution Width 13.3 % (11.5-14.5); White Blood Count 5.8 K/mcL (4.3-11.1)
[2019-09-04 05:08] LABS: Prothrombin Time 23.2 Seconds (9.4-12.1)
[2019-09-04 05:24] LABS: Calcium 8.7 mg/dL (8.6-10.3); Magnesium 2.1 mg/dL (1.6-2.6); Potassium 4.2 mEq/L (3.5-5.1)
[2019-09-04] MEDS: *HR* OxyCODONE/APAP 10/325 TABLET PO PRN ×3 (06:13→20:38)
[2019-09-04] MEDS: Doxycycline 100 MG in 0.9 % Sodium Chloride Mini Bag 100 ML IVPB SCH ×2 (06:14→20:39)
[2019-09-04] MEDS: Sennosides/Docusate Sodium TABLET PO SCH ×2 (10:34→20:38)
[2019-09-04] MEDS: predniSONE 20 MG TABLET PO SCH (10:34)
[2019-09-04] MEDS: DilTIAZem CD (24hr) 240 MG CAP.ER.24H PO SCH (10:35)
[2019-09-04] MEDS: Furosemide 40 MG TABLET PO SCH (10:35)
[2019-09-04] MEDS: Insulin LISPRO 300 UNITS/3 ML VIAL SQ SCH ×4 (10:37→20:57)
[2019-09-04] MEDS ORDERED: Perflutren Lipid Microsphere 1.3 ML in 0.9 % Sodium Chloride 8.7 ML IVP ONE (15:27)
[2019-09-04] MEDS ORDERED: DilTIAZem CD (24hr) 120 MG CAP.ER.24H PO ONE (16:10)
[2019-09-04] MEDS ORDERED: *HR* Warfarin 10 MG TABLET PO ONE (18:00)
[2019-09-05] MEDS: *HR* LORazepam 2 MG/ML VIAL IVP PRN (00:06)
[2019-09-05] MEDS: Ipratropium Neb 0.5 MG NEBULIZER IH SCH ×7 (04:03→23:29)
[2019-09-05] MEDS: Levalbuterol Neb 1.25 MG/3 ML IH SCH ×7 (04:03→23:29)
[2019-09-05] MEDS: Gabapentin 400 MG CAPSULE PO SCH ×4 (04:31→20:29)
[2019-09-05] MEDS: Doxycycline 100 MG in 0.9 % Sodium Chloride Mini Bag 100 ML IVPB SCH (04:45)
[2019-09-05 05:02] LABS: INR 2.6; Prothrombin Time 30.1 Seconds (9.4-12.1)
[2019-09-05 05:04] LABS: Basophils % 0.2 %; Eosinophils # 0.1 K/mcL (0.0-0.6); Hematocrit 41.6 % (37.5-50.1); Hemoglobin 13.2 g/dL (12.9-16.9); Immature Granulocytes % 0.8 % (0-4); Lymphocytes # 1.1 K/mcL (0.6-4.6); Lymphocytes % 21.1 %; Mean Corpuscular HGB Conc 31.7 g/dL (31.6-35.5); Mean Corpuscular Hemoglobin 30.6 pg (28.0-33.3); Mean Corpuscular Volume 96.3 fL (83.0-100.0); Mean Platelet Volume 9.5 fL (9.4-12.4); Monocytes # 0.4 K/mcL (0.0-1.3); Monocytes % 7.5 %; Neutrophils # 3.6 K/mcL (1.6-8.9); Platelet Count 149 K/mcL (140-400); Red Blood Count 4.32 M/mcL (4.19-5.50); Red Cell Distribution Width 13.2 % (11.5-14.5); Segmented Neutrophils % 69.4 %; White Blood Count 5.2 K/mcL (4.3-11.1)
[2019-09-05 05:27] LABS: BUN/Creatinine Ratio 38 (6-26); Blood Urea Nitrogen 44 mg/dL (8-23); Calcium 8.9 mg/dL (8.6-10.3); Carbon Dioxide 36 mEq/L (23-29); Chloride 102 mEq/L (98-107); Glucose 117 mg/dL (70-105); Magnesium 2.1 mg/dL (1.6-2.6); Osmolality,Calculated 308 (280-300); Potassium 4.3 mEq/L (3.5-5.1); Sodium 143 mEq/L (136-145); eGFR For African Americans > 60 (> 60); eGFR For Non-African Americans > 60 (> 60)
[2019-09-05] MEDS: *HR* OxyCODONE/APAP 10/325 TABLET PO PRN ×4 (07:53→20:29)
[2019-09-05] MEDS: Insulin LISPRO 300 UNITS/3 ML VIAL SQ SCH ×4 (07:53→20:46)
[2019-09-05] MEDS: DilTIAZem CD (24hr) 180 MG CAP.ER.24H PO SCH (07:55)
[2019-09-05] MEDS: predniSONE 20 MG TABLET PO SCH (07:55)
[2019-09-05] MEDS: Sennosides/Docusate Sodium TABLET PO SCH ×2 (07:55→20:29)
[2019-09-05] MEDS: Furosemide 40 MG TABLET PO SCH (16:11)
[2019-09-05] MEDS ORDERED: *HR* Warfarin 5 MG TABLET PO ONE (18:00)
[2019-09-06] MEDS: *HR* LORazepam 2 MG/ML VIAL IVP PRN (00:27)
[2019-09-06] MEDS: *HR* OxyCODONE/APAP 10/325 TABLET PO PRN ×5 (00:31→22:22)
[2019-09-06] MEDS: Ipratropium Neb 0.5 MG NEBULIZER IH SCH ×6 (03:15→23:10)
[2019-09-06] MEDS: Levalbuterol Neb 1.25 MG/3 ML IH SCH ×6 (03:15→23:10)
[2019-09-06] MEDS: Gabapentin 400 MG CAPSULE PO SCH ×4 (03:58→23:46)
[2019-09-06 04:00] LABS: Basophils % 0.2 %; Eosinophils # 0.1 K/mcL (0.0-0.6); Eosinophils % 1.8 %; Hematocrit 41.4 % (37.5-50.1); Hemoglobin 13.1 g/dL (12.9-16.9); Immature Granulocytes % 0.6 % (0-4); Immature Platelets 1.9 % (1.1-6.1); Lymphocytes # 1.3 K/mcL (0.6-4.6); Lymphocytes % 21.1 %; Mean Corpuscular HGB Conc 31.6 g/dL (31.6-35.5); Mean Corpuscular Volume 97.9 fL (83.0-100.0); Mean Platelet Volume 9.1 fL (9.4-12.4); Monocytes # 0.5 K/mcL (0.0-1.3); Monocytes % 7.3 %; Neutrophils # 4.3 K/mcL (1.6-8.9); Platelet Count 154 K/mcL (140-400); Red Blood Count 4.23 M/mcL (4.19-5.50); Red Cell Distribution Width 13.6 % (11.5-14.5); White Blood Count 6.2 K/mcL (4.3-11.1)
[2019-09-06 04:07] LABS: Prothrombin Time 34.6 Seconds (9.4-12.1)
[2019-09-06 04:27] LABS: BUN/Creatinine Ratio 33 (6-26); Blood Urea Nitrogen 42 mg/dL (8-23); Calcium 9.2 mg/dL (8.6-10.3); Carbon Dioxide 36 mEq/L (23-29); Chloride 102 mEq/L (98-107); Glucose 133 mg/dL (70-105); Magnesium 2.1 mg/dL (1.6-2.6); Osmolality,Calculated 308 (280-300); Phosphorous 4.4 mg/dL (2.7-4.5); Potassium 4.4 mEq/L (3.5-5.1); Sodium 143 mEq/L (136-145); eGFR For African Americans > 60 (> 60); eGFR For Non-African Americans 57 (> 60)
[2019-09-06] MEDS: Insulin LISPRO 300 UNITS/3 ML VIAL SQ SCH ×4 (07:30→22:21)
[2019-09-06] MEDS: DilTIAZem CD (24hr) 180 MG CAP.ER.24H PO SCH (11:40)
[2019-09-06] MEDS: predniSONE 20 MG TABLET PO SCH (11:46)
[2019-09-06] MEDS: Furosemide 40 MG TABLET PO SCH ×2 (11:47→17:25)
[2019-09-06] MEDS: Sennosides/Docusate Sodium TABLET PO SCH ×2 (11:47→22:18)
[2019-09-06] MEDS ORDERED: *HR* Warfarin 2.5 MG TABLET PO ONE (18:00)
[2019-09-06] MEDS: *HR* Metoprolol 5 MG/5 ML VIAL IVP PRN (22:22)
[2019-09-07] MEDS: DilTIAZem 50 MG in 0.9 % Sodium Chloride 40 ML IVC SCH ×3 (02:37→20:13)
[2019-09-07 02:47] LABS: Eosinophils % 0.8 %; Hematocrit 41.5 % (37.5-50.1); Immature Granulocytes % 0.4 % (0-4); Lymphocytes # 0.7 K/mcL (0.6-4.6); Lymphocytes % 12.9 %; Mean Corpuscular HGB Conc 31.3 g/dL (31.6-35.5); Mean Corpuscular Hemoglobin 30.7 pg (28.0-33.3); Mean Corpuscular Volume 98.1 fL (83.0-100.0); Mean Platelet Volume 9.2 fL (9.4-12.4); Monocytes # 0.3 K/mcL (0.0-1.3); Monocytes % 6.7 %; Platelet Count 132 K/mcL (140-400); Red Blood Count 4.23 M/mcL (4.19-5.50); Red Cell Distribution Width 13.6 % (11.5-14.5); Segmented Neutrophils % 79.2 %
[2019-09-07 02:54] LABS: INR 2.8; Prothrombin Time 32.2 Seconds (9.4-12.1)
[2019-09-07 03:15] LABS: BUN/Creatinine Ratio 39 (6-26); Blood Urea Nitrogen 43 mg/dL (8-23); Calcium 9.3 mg/dL (8.6-10.3); Carbon Dioxide 36 mEq/L (23-29); Chloride 100 mEq/L (98-107); Glucose 168 mg/dL (70-105); Magnesium 1.8 mg/dL (1.6-2.6); Osmolality,Calculated 311 (280-300); Potassium 4.3 mEq/L (3.5-5.1); Sodium 143 mEq/L (136-145); eGFR For African Americans > 60 (> 60); eGFR For Non-African Americans > 60 (> 60)
[2019-09-07] MEDS: Levalbuterol Neb 1.25 MG/3 ML IH SCH ×6 (03:33→23:59)
[2019-09-07] MEDS: Ipratropium Neb 0.5 MG NEBULIZER IH SCH ×6 (03:33→23:59)
[2019-09-07] MEDS: Gabapentin 400 MG CAPSULE PO SCH ×3 (05:40→18:25)
[2019-09-07] MEDS: *HR* OxyCODONE/APAP 10/325 TABLET PO PRN ×4 (05:45→20:11)
[2019-09-07] MEDS: Furosemide 40 MG TABLET PO SCH ×2 (09:24→18:26)
[2019-09-07] MEDS: Sennosides/Docusate Sodium TABLET PO SCH ×2 (09:24→20:10)
[2019-09-07] MEDS: predniSONE 20 MG TABLET PO SCH (09:25)
[2019-09-07] MEDS: Insulin LISPRO 300 UNITS/3 ML VIAL SQ SCH ×4 (09:26→20:16)
[2019-09-07] MEDS ORDERED: *HR* Warfarin 5 MG TABLET PO ONE (18:00)
[2019-09-08] MEDS: Gabapentin 400 MG CAPSULE PO SCH ×5 (00:30→22:59)
[2019-09-08] MEDS: *HR* LORazepam 2 MG/ML VIAL IVP PRN ×2 (00:30→22:59)
[2019-09-08] MEDS: *HR* OxyCODONE/APAP 10/325 TABLET PO PRN ×5 (01:40→22:59)
[2019-09-08] MEDS: DilTIAZem 50 MG in 0.9 % Sodium Chloride 40 ML IVC SCH (01:40)
[2019-09-08] MEDS: Levalbuterol Neb 1.25 MG/3 ML IH SCH ×6 (03:56→23:39)
[2019-09-08] MEDS: Ipratropium Neb 0.5 MG NEBULIZER IH SCH ×6 (03:56→23:39)
[2019-09-08 05:22] LABS: Basophils % 0.2 %; Eosinophils # 0.1 K/mcL (0.0-0.6); Eosinophils % 0.9 %; Hematocrit 41.7 % (37.5-50.1); Hemoglobin 12.6 g/dL (12.9-16.9); Immature Granulocytes % 0.8 % (0-4); Lymphocytes # 0.7 K/mcL (0.6-4.6); Lymphocytes % 13.3 %; Mean Corpuscular HGB Conc 30.2 g/dL (31.6-35.5); Mean Corpuscular Hemoglobin 30.1 pg (28.0-33.3); Mean Corpuscular Volume 99.5 fL (83.0-100.0); Mean Platelet Volume 9.4 fL (9.4-12.4); Monocytes # 0.4 K/mcL (0.0-1.3); Monocytes % 7.4 %; Neutrophils # 4.1 K/mcL (1.6-8.9); Platelet Count 114 K/mcL (140-400); Red Blood Count 4.19 M/mcL (4.19-5.50); Red Cell Distribution Width 13.9 % (11.5-14.5); Segmented Neutrophils % 77.4 %; White Blood Count 5.3 K/mcL (4.3-11.1)
[2019-09-08 05:26] LABS: INR 2.3; Prothrombin Time 26.6 Seconds (9.4-12.1)
[2019-09-08 05:46] LABS: BUN/Creatinine Ratio 37 (6-26); Blood Urea Nitrogen 37 mg/dL (8-23); Calcium 9.1 mg/dL (8.6-10.3); Carbon Dioxide 36 mEq/L (23-29); Chloride 101 mEq/L (98-107); Glucose 134 mg/dL (70-105); Osmolality,Calculated 303 (280-300); Phosphorous 3.2 mg/dL (2.7-4.5); Sodium 141 mEq/L (136-145); eGFR For African Americans > 60 (> 60); eGFR For Non-African Americans > 60 (> 60)
[2019-09-08] MEDS: predniSONE 20 MG TABLET PO SCH (09:05)
[2019-09-08] MEDS: Sennosides/Docusate Sodium TABLET PO SCH ×2 (09:05→20:39)
[2019-09-08] MEDS: Furosemide 40 MG TABLET PO SCH ×2 (09:06→17:00)
[2019-09-08] MEDS: Insulin LISPRO 300 UNITS/3 ML VIAL SQ SCH ×4 (09:08→20:33)
[2019-09-08] MEDS ORDERED: *HR* Warfarin 7.5 MG TABLET PO ONE (18:00)
[2019-09-09] MEDS: DilTIAZem 50 MG in 0.9 % Sodium Chloride 40 ML IVC SCH ×2 (01:31→10:17)
[2019-09-09] MEDS: Ipratropium Neb 0.5 MG NEBULIZER IH SCH ×6 (03:38→23:32)
[2019-09-09] MEDS: Levalbuterol Neb 1.25 MG/3 ML IH SCH ×6 (03:38→23:32)
[2019-09-09 04:53] LABS: Basophils % 0.2 %; Eosinophils # 0.1 K/mcL (0.0-0.6); Eosinophils % 1.2 %; Hematocrit 41.5 % (37.5-50.1); Hemoglobin 12.7 g/dL (12.9-16.9); Immature Granulocytes % 0.9 % (0-4); Lymphocytes # 1.3 K/mcL (0.6-4.6); Lymphocytes % 22.7 %; Mean Corpuscular HGB Conc 30.6 g/dL (31.6-35.5); Mean Corpuscular Hemoglobin 30.1 pg (28.0-33.3); Mean Corpuscular Volume 98.3 fL (83.0-100.0); Mean Platelet Volume 9.7 fL (9.4-12.4); Monocytes # 0.5 K/mcL (0.0-1.3); Monocytes % 8.8 %; Neutrophils # 3.8 K/mcL (1.6-8.9); Platelet Count 116 K/mcL (140-400); Red Blood Count 4.22 M/mcL (4.19-5.50); Red Cell Distribution Width 14.3 % (11.5-14.5); Segmented Neutrophils % 66.2 %; White Blood Count 5.7 K/mcL (4.3-11.1)
[2019-09-09 05:04] LABS: Prothrombin Time 23.1 Seconds (9.4-12.1)
[2019-09-09 05:05] LABS: BUN/Creatinine Ratio 34 (6-26); Blood Urea Nitrogen 36 mg/dL (8-23); Calcium 8.6 mg/dL (8.6-10.3); Carbon Dioxide 38 mEq/L (23-29); Chloride 100 mEq/L (98-107); Glucose 106 mg/dL (70-105); Magnesium 2.1 mg/dL (1.6-2.6); Osmolality,Calculated 299 (280-300); Phosphorous 3.3 mg/dL (2.7-4.5); Potassium 3.7 mEq/L (3.5-5.1); Sodium 140 mEq/L (136-145); eGFR For African Americans > 60 (> 60); eGFR For Non-African Americans > 60 (> 60)
[2019-09-09] MEDS: *HR* OxyCODONE/APAP 10/325 TABLET PO PRN ×4 (06:04→20:40)
[2019-09-09] MEDS: Gabapentin 400 MG CAPSULE PO SCH ×4 (06:04→23:54)
[2019-09-09] MEDS: predniSONE 20 MG TABLET PO SCH (10:12)
[2019-09-09] MEDS: Furosemide 40 MG TABLET PO SCH (10:13)
[2019-09-09] MEDS: Sennosides/Docusate Sodium TABLET PO SCH ×2 (10:13→21:32)
[2019-09-09] MEDS: Insulin LISPRO 300 UNITS/3 ML VIAL SQ SCH ×4 (10:14→21:40)
[2019-09-09] MEDS: *HR* LORazepam 2 MG/ML VIAL IVP PRN (10:15)
[2019-09-09] MEDS: DilTIAZem CD (24hr) 180 MG CAP.ER.24H PO SCH (12:02)
[2019-09-09] MEDS: Furosemide 40 MG/4 ML VIAL IVP SCH ×2 (12:07→21:33)
[2019-09-09] MEDS: *HR* Metoprolol 5 MG/5 ML VIAL IVP PRN ×2 (12:28→13:48)
[2019-09-09] MEDS ORDERED: Amiodarone Premix 150 MG/100 ML BAG IVPB ONE (16:33)
[2019-09-09] MEDS ORDERED: Amiodarone Premix 360 MG/200 ML BAG IVC ONE (16:33)
[2019-09-09] MEDS ORDERED: Amiodarone Premix 360 MG/200 ML BAG IVC SCH (16:45)
[2019-09-09] MEDS ORDERED: *HR* Warfarin 10 MG TABLET PO ONE (18:00)
[2019-09-09] MEDS ORDERED: Metoprolol XL (24 HR) Succ 50 MG TAB.ER.24H PO ONE (20:30)
[2019-09-09] MEDS: *HR* Digoxin 0.25 MG TABLET PO SCH (21:32)
[2019-09-10] MEDS: *HR* LORazepam 2 MG/ML VIAL IVP PRN (00:08)
[2019-09-10] MEDS: *HR* Digoxin 0.25 MG TABLET PO SCH ×3 (02:27→14:31)
[2019-09-10] MEDS: Ipratropium Neb 0.5 MG NEBULIZER IH SCH ×5 (03:52→20:34)
[2019-09-10] MEDS: Levalbuterol Neb 1.25 MG/3 ML IH SCH ×5 (03:52→20:34)
[2019-09-10 04:00] LABS: Eosinophils % 0.7 %; Mean Platelet Volume 9.8 fL (9.4-12.4)
[2019-09-10 04:02] LABS: Basophils % 0.4 %; Hemoglobin 12.5 g/dL (12.9-16.9); Immature Granulocytes % 0.7 % (0-4); Immature Platelets 2.9 % (1.1-6.1); Lymphocytes # 0.7 K/mcL (0.6-4.6); Mean Corpuscular HGB Conc 30.5 g/dL (31.6-35.5); Mean Corpuscular Hemoglobin 29.7 pg (28.0-33.3); Mean Corpuscular Volume 97.4 fL (83.0-100.0); Monocytes # 0.5 K/mcL (0.0-1.3); Monocytes % 8.1 %; Platelet Count 106 K/mcL (140-400); Red Blood Count 4.21 M/mcL (4.19-5.50); Red Cell Distribution Width 14.2 % (11.5-14.5); Segmented Neutrophils % 78.1 %; White Blood Count 5.7 K/mcL (4.3-11.1)
[2019-09-10 04:10] LABS: INR 2.1; Prothrombin Time 24.2 Seconds (9.4-12.1)
[2019-09-10 04:15] LABS: Neutrophils # 4.5 K/mcL (1.6-8.9)
[2019-09-10 04:20] LABS: BUN/Creatinine Ratio 36 (6-26); Blood Urea Nitrogen 35 mg/dL (8-23); Calcium 8.6 mg/dL (8.6-10.3); Carbon Dioxide 33 mEq/L (23-29); Chloride 99 mEq/L (98-107); Glucose 119 mg/dL (70-105); Magnesium 2.1 mg/dL (1.6-2.6); Osmolality,Calculated 295 (280-300); Potassium 4.3 mEq/L (3.5-5.1); Sodium 138 mEq/L (136-145); eGFR For African Americans > 60 (> 60); eGFR For Non-African Americans > 60 (> 60)
[2019-09-10] MEDS: Gabapentin 400 MG CAPSULE PO SCH ×3 (06:45→17:15)
[2019-09-10] MEDS: *HR* OxyCODONE/APAP 10/325 TABLET PO PRN ×4 (06:45→20:55)
[2019-09-10] MEDS: Furosemide 40 MG/4 ML VIAL IVP SCH ×2 (07:57→20:58)
[2019-09-10] MEDS: predniSONE 20 MG TABLET PO SCH (07:58)
[2019-09-10] MEDS: Sennosides/Docusate Sodium TABLET PO SCH ×2 (07:59→20:59)
[2019-09-10] MEDS: Insulin LISPRO 300 UNITS/3 ML VIAL SQ SCH ×4 (08:03→20:52)
[2019-09-10] MEDS ORDERED: *HR* Warfarin 5 MG TABLET PO ONE (18:00)
[2019-09-10] MEDS: *HR* Metoprolol 5 MG/5 ML VIAL IVP PRN (18:57)
[2019-09-10] MEDS ORDERED: Metoprolol XL (24 HR) Succ 50 MG TAB.ER.24H PO ONE (19:00)
[2019-09-10] MEDS: Metoprolol XL (24 HR) Succ 50 MG TAB.ER.24H PO SCH (20:59)
[2019-09-10] MEDS ORDERED: DilTIAZem CD (24hr) 180 MG CAP.ER.24H PO ONE (21:36)
[2019-09-11] MEDS: Levalbuterol Neb 1.25 MG/3 ML IH SCH ×5 (00:16→16:05)
[2019-09-11] MEDS: Ipratropium Neb 0.5 MG NEBULIZER IH SCH ×5 (00:16→16:05)
[2019-09-11] MEDS: Gabapentin 400 MG CAPSULE PO SCH ×4 (00:36→17:32)
[2019-09-11] MEDS: *HR* LORazepam 2 MG/ML VIAL IVP PRN (00:37)
[2019-09-11] MEDS: *HR* OxyCODONE/APAP 10/325 TABLET PO PRN ×5 (00:37→18:13)
[2019-09-11] MEDS ORDERED: *HR* Digoxin 0.25 MG TABLET PO ONE (00:56)
[2019-09-11 05:09] LABS: INR 2.3; Prothrombin Time 26.6 Seconds (9.4-12.1)
[2019-09-11] MEDS: Metoprolol XL (24 HR) Succ 50 MG TAB.ER.24H PO SCH (08:30)
[2019-09-11] MEDS: predniSONE 20 MG TABLET PO SCH (08:30)
[2019-09-11] MEDS: Furosemide 40 MG/4 ML VIAL IVP SCH (08:31)
[2019-09-11] MEDS: DilTIAZem CD (24hr) 180 MG CAP.ER.24H PO SCH (08:31)
[2019-09-11] MEDS: Sennosides/Docusate Sodium TABLET PO SCH (08:31)
[2019-09-11] MEDS: Insulin LISPRO 300 UNITS/3 ML VIAL SQ SCH ×3 (08:32→17:33)
[2019-09-11] MEDS ORDERED: *HR* Digoxin 0.25 MG TABLET PO SCH (09:00)
[2019-09-11 16:29] VITALS: BP 124/76
[2019-09-11] MEDS ORDERED: *HR* Warfarin 10 MG TABLET PO ONE (18:00)
== END 2019-09-11 18:20 | DRG 308 ==
LOC: 2NNU → SUATTDRO 21:52 → ICNU 08-30 12:05 → 2NENU 09-03 14:46 → 2NNU 09-09 18:54
PROVIDERS: ADMIT Internal Medicine; ATTEND Internal Medicine

== ENCOUNTER 2021-11-06 16:34 | Inpatient (IN) ==
[2021-11-06] MEDS ORDERED: Naloxone 0.4 MG/ML INJ IVP PRN (18:46)
[2021-11-06] MEDS ORDERED: Dextrose 4 GM Chewable Tablets PO PRN ×2 (18:49)
[2021-11-06] MEDS ORDERED: *HR* Dextrose 50 % in Water (Syg) 50 ML SYRINGE IVP PRN (18:49)
[2021-11-06] MEDS ORDERED: D5% in Water 1,000 ML IVC PRN (18:49)
[2021-11-06] MEDS ORDERED: Ringers Solution, Lactated 1,000 ML IVC SCH (19:00)
[2021-11-06] MEDS ORDERED: 0.9 % Sodium Chloride 500 ML IVC ONE ×2 (19:26→21:31)
[2021-11-06] MEDS: Ondansetron 4 MG/2 ML VIAL IVP PRN (19:53)
[2021-11-06] MEDS: 0.9 % Sodium Chloride 1,000 ML IVC SCH (20:18)
[2021-11-06] MEDS ORDERED: methylPREDNISolone 125 MG/2 ML VIAL IVP ONE (20:33)
[2021-11-06] MEDS ORDERED: cefTRIAXone 2,000 MG in 0.9 % Sodium Chloride 20 ML IVP ONE (20:33)
[2021-11-06] MEDS ORDERED: Azithromycin 500 MG in 0.9 % Sodium Chloride 250 ML IVPB ONE (20:33)
[2021-11-06] MEDS ORDERED: *HR* Metoprolol 5 MG/5 ML VIAL IVP ONE (20:36)
[2021-11-06] MEDS: DilTIAZem 50 MG/50 ML IV.SOLN IVC SCH (20:44)
[2021-11-06] MEDS ORDERED: 0.9 % Sodium Chloride 250 ML ONE (20:48)
[2021-11-06] MEDS ORDERED: Prochlorperazine 10 MG/2 ML VIAL IVP ONE (21:32)
[2021-11-06] MEDS ORDERED: *HR* HYDROmorphone (PF) 1 MG/ML SYRINGE IVP ONE (21:33)
[2021-11-06 21:58] LABS: Adenovirus Not Detected (Not Detect); Bordetella Pertussis Not Detected (Not Detect); Chlamydophila pneumoniae Not Detected (Not Detect); Coronavirus 229E Not Detected (Not Detect); Coronavirus HKU1 Not Detected (Not Detect); Coronavirus NL63 Not Detected (Not Detect); Coronavirus OC43 Not Detected (Not Detect); Human Metapneumovirus Not Detected (Not Detect); Human Rhinovirus/Enterovirus Not Detected (Not Detect); Influenza A Subtype 2009 H1 Not Detected (Not Detect); Influenza B Not Detected (Not Detect); Mycoplasma pneumoniae Not Detected (Not Detect); Parainfluenza Virus 1 Not Detected (Not Detect); Parainfluenza Virus 2 Not Detected (Not Detect); Parainfluenza Virus 3 Not Detected (Not Detect); Parainfluenza Virus 4 Not Detected (Not Detect); Respiratory Syncytial Virus Not Detected (Not Detect); SARS-CoV-2 Not Detected (Not Detect)
[2021-11-06] MEDS ORDERED: *HR* Heparin 5,000 UNIT/ML VIAL SQ SCH (22:00)
[2021-11-06] MEDS: Levalbuterol Neb 0.63 MG/3 ML IH SCH (22:11)
[2021-11-07] MEDS: Insulin LISPRO 300 UNITS/3 ML VIAL SUBQ SCH ×4 (00:23→17:50)
[2021-11-07 01:31] LABS: Basophils % 0.2 %; Eosinophils % 0.5 %; Hematocrit 44.1 % (37.5-50.1); Hemoglobin 14.5 g/dL (12.9-16.9); Immature Granulocytes % 0.3 % (0-4); Lymphocytes # 0.4 K/mcL (0.6-4.6); Lymphocytes % 6.5 %; Mean Corpuscular HGB Conc 32.9 g/dL (31.6-35.5); Mean Corpuscular Hemoglobin 29.8 pg (28.0-33.3); Mean Corpuscular Volume 90.6 fL (83.0-100.0); Mean Platelet Volume 9.6 fL (9.4-12.4); Monocytes # 0.3 K/mcL (0.0-1.3); Monocytes % 4.9 %; Neutrophils # 5.6 K/mcL (1.6-8.9); Platelet Count 151 K/mcL (140-400); Red Blood Count 4.87 M/mcL (4.19-5.50); Red Cell Distribution Width 13.5 % (11.5-14.5); Segmented Neutrophils % 87.6 %; White Blood Count 6.3 K/mcL (4.3-11.1)
[2021-11-07 01:40] LABS: INR 2.4; Prothrombin Time 26.2 Seconds (9.4-12.1)
[2021-11-07 01:42] LABS: Activated Partial Thrombo Time 49.9 Seconds (26.0-36.0)
[2021-11-07 01:45] LABS: Calcium 9.3 mg/dL (8.6-10.3); Magnesium 2.2 mg/dL (1.6-2.6); Phosphorous 3.9 mg/dL (2.7-4.5); Potassium 3.8 mEq/L (3.5-5.1)
[2021-11-07] MEDS: Levalbuterol Neb 0.63 MG/3 ML IH SCH ×4 (03:19→20:00)
[2021-11-07] MEDS: DilTIAZem 50 MG/50 ML IV.SOLN IVC SCH ×2 (04:25→07:38)
[2021-11-07] MEDS: MethylPREDNISolone 40 MG/ML VIAL IVP SCH ×2 (06:33→16:59)
[2021-11-07] MEDS: cefTRIAXone 1,000 MG in 0.9 % Sodium Chloride 10 ML IVP SCH (09:19)
[2021-11-07] MEDS: Pantoprazole 40 MG VIAL IVP SCH (09:19)
[2021-11-07] MEDS: 0.9 % Sodium Chloride 1,000 ML IVC SCH ×3 (09:29→23:53)
[2021-11-07] MEDS: Budesonide/Formoterol 160/4.5 1 PUFF INH IH SCH ×2 (10:59→20:00)
[2021-11-07] MEDS: *HR* Metoprolol 5 MG/5 ML VIAL IVP SCH ×3 (11:45→23:45)
[2021-11-07] MEDS ORDERED: Levalbuterol Neb 0.63 MG/3 ML IH PRN (15:59)
[2021-11-07] MEDS ORDERED: Fluticasone Propionate Nasal 50 MCG/SPRAY BOTTLE NS PRN (15:59)
[2021-11-07] MEDS: hydrOXYzine pamoate 25 MG CAPSULE PO PRN (20:42)
[2021-11-07] MEDS: rOPINIRole 1 MG TABLET PO SCH (20:43)
[2021-11-07] MEDS: allopurinoL 100 MG TABLET PO SCH (20:43)
[2021-11-07] MEDS: Gabapentin 300 MG CAPSULE PO SCH (20:43)
[2021-11-07] MEDS: Azithromycin 500 MG in 0.9 % Sodium Chloride 250 ML IVPB SCH (20:46)
[2021-11-07] MEDS ORDERED: *HR* HYDROmorphone (PF) 1 MG/ML SYRINGE IVP ONE (23:36)
[2021-11-08 03:08] LABS: Basophils % 0.1 %; Hematocrit 41.3 % (37.5-50.1); Hemoglobin 13.5 g/dL (12.9-16.9); Immature Granulocytes % 0.5 % (0-4); Lymphocytes # 0.8 K/mcL (0.6-4.6); Lymphocytes % 10.3 %; Mean Corpuscular HGB Conc 32.7 g/dL (31.6-35.5); Mean Corpuscular Hemoglobin 29.7 pg (28.0-33.3); Mean Corpuscular Volume 90.8 fL (83.0-100.0); Mean Platelet Volume 9.9 fL (9.4-12.4); Monocytes # 0.5 K/mcL (0.0-1.3); Monocytes % 6.8 %; Neutrophils # 6.1 K/mcL (1.6-8.9); Platelet Count 150 K/mcL (140-400); Red Blood Count 4.55 M/mcL (4.19-5.50); Red Cell Distribution Width 13.2 % (11.5-14.5); Segmented Neutrophils % 82.3 %; White Blood Count 7.4 K/mcL (4.3-11.1)
[2021-11-08 03:19] LABS: Albumin/Globulin Ratio 1.6 (1.1-2.2); Bilirubin,Total 0.4 mg/dL (0.3-1.0); Calcium 8.7 mg/dL (8.6-10.3); Globulin 2.5 g/dL (2.4-3.5); Potassium 3.7 mEq/L (3.5-5.1); Total Protein 6.5 g/dL (6.4-8.9)
[2021-11-08] MEDS: Insulin LISPRO 300 UNITS/3 ML VIAL SUBQ SCH ×5 (03:40→21:54)
[2021-11-08] MEDS: Levalbuterol Neb 0.63 MG/3 ML IH SCH ×4 (03:53→20:26)
[2021-11-08] MEDS: *HR* Metoprolol 5 MG/5 ML VIAL IVP SCH (06:26)
[2021-11-08] MEDS: MethylPREDNISolone 40 MG/ML VIAL IVP SCH ×2 (06:26→18:02)
[2021-11-08] MEDS: Ondansetron 4 MG/2 ML VIAL IVP PRN ×2 (06:34→13:51)
[2021-11-08] MEDS: Metoprolol XL (24 HR) Succ 50 MG TAB.ER.24H PO SCH (08:15)
[2021-11-08] MEDS: allopurinoL 100 MG TABLET PO SCH ×2 (08:15→21:54)
[2021-11-08] MEDS: Gabapentin 300 MG CAPSULE PO SCH ×2 (08:15→21:54)
[2021-11-08] MEDS: cefTRIAXone 1,000 MG in 0.9 % Sodium Chloride 10 ML IVP SCH (08:16)
[2021-11-08] MEDS: Pantoprazole 40 MG VIAL IVP SCH (08:16)
[2021-11-08] MEDS: BuPROPion XL (24 HR) 150 MG TABLET PO SCH (08:16)
[2021-11-08] MEDS: Budesonide/Formoterol 160/4.5 1 PUFF INH IH SCH ×2 (11:23→20:26)
[2021-11-08] MEDS ORDERED: *HR* LORazepam 2 MG/ML VIAL IVP ONE (11:42)
[2021-11-08] MEDS: 0.9 % Sodium Chloride 1,000 ML IVC SCH ×2 (12:23→21:54)
[2021-11-08] MEDS: rOPINIRole 1 MG TABLET PO SCH (21:54)
[2021-11-08] MEDS: Azithromycin 500 MG in 0.9 % Sodium Chloride 250 ML IVPB SCH (21:55)
[2021-11-09] MEDS: Levalbuterol Neb 0.63 MG/3 ML IH SCH ×4 (04:27→20:35)
[2021-11-09 05:38] LABS: Hematocrit 43.4 % (37.5-50.1); Hemoglobin 13.4 g/dL (12.9-16.9); Immature Granulocytes % 0.8 % (0-4); Lymphocytes % 11.1 %; Mean Corpuscular HGB Conc 30.9 g/dL (31.6-35.5); Mean Corpuscular Hemoglobin 28.4 pg (28.0-33.3); Mean Corpuscular Volume 91.9 fL (83.0-100.0); Mean Platelet Volume 9.7 fL (9.4-12.4); Monocytes % 6.9 %; Platelet Count 149 K/mcL (140-400); Red Blood Count 4.72 M/mcL (4.19-5.50); Red Cell Distribution Width 13.3 % (11.5-14.5); Segmented Neutrophils % 81.1 %; White Blood Count 8.3 K/mcL (4.3-11.1)
[2021-11-09 05:39] LABS: Basophils % 0.1 %; Lymphocytes # 0.9 K/mcL (0.6-4.6); Monocytes # 0.6 K/mcL (0.0-1.3); Neutrophils # 6.7 K/mcL (1.6-8.9)
[2021-11-09] MEDS: MethylPREDNISolone 40 MG/ML VIAL IVP SCH ×2 (05:44→16:45)
[2021-11-09] MEDS: Insulin LISPRO 300 UNITS/3 ML VIAL SUBQ SCH ×4 (08:30→20:32)
[2021-11-09] MEDS: Pantoprazole 40 MG VIAL IVP SCH (08:31)
[2021-11-09] MEDS: Metoprolol XL (24 HR) Succ 50 MG TAB.ER.24H PO SCH (08:31)
[2021-11-09] MEDS: allopurinoL 100 MG TABLET PO SCH ×2 (08:31→20:29)
[2021-11-09] MEDS: BuPROPion XL (24 HR) 150 MG TABLET PO SCH (08:31)
[2021-11-09] MEDS: cefTRIAXone 1,000 MG in 0.9 % Sodium Chloride 10 ML IVP SCH (08:32)
[2021-11-09] MEDS: 0.9 % Sodium Chloride 1,000 ML IVC SCH ×2 (08:37→20:34)
[2021-11-09] MEDS: Gabapentin 300 MG CAPSULE PO SCH ×2 (08:46→20:29)
[2021-11-09] MEDS: Ondansetron 4 MG/2 ML VIAL IVP PRN (08:47)
[2021-11-09] MEDS: DilTIAZem CD (24hr) 180 MG CAP.ER.24H PO SCH ×2 (09:52→20:31)
[2021-11-09 10:37] LABS: Albumin/Globulin Ratio 1.6 (1.1-2.2); Bilirubin,Total 0.5 mg/dL (0.3-1.0); Calcium 8.2 mg/dL (8.6-10.3); Globulin 2.5 g/dL (2.4-3.5); Potassium 4.4 mEq/L (3.5-5.1); Total Protein 6.5 g/dL (6.4-8.9)
[2021-11-09] MEDS: Budesonide/Formoterol 160/4.5 1 PUFF INH IH SCH ×2 (10:43→20:35)
[2021-11-09 15:34] LABS: INR 1.7; Prothrombin Time 18.4 Seconds (9.4-12.1)
[2021-11-09] MEDS ORDERED: *HR* Warfarin 7.5 MG TABLET PO ONE (18:00)
[2021-11-09] MEDS ORDERED: Warfarin perPT PO PRN (18:00)
[2021-11-09] MEDS: rOPINIRole 1 MG TABLET PO SCH (20:29)
[2021-11-09] MEDS: Azithromycin 500 MG in 0.9 % Sodium Chloride 250 ML IVPB SCH (20:33)
[2021-11-10] MEDS: Levalbuterol Neb 0.63 MG/3 ML IH SCH ×4 (04:06→19:58)
[2021-11-10 04:58] LABS: Basophils % 0.3 %; Hematocrit 43.8 % (37.5-50.1); Immature Granulocytes % 1.5 % (0-4); Lymphocytes # 0.9 K/mcL (0.6-4.6); Lymphocytes % 11.5 %; Mean Corpuscular Hemoglobin 29.7 pg (28.0-33.3); Mean Platelet Volume 9.8 fL (9.4-12.4); Monocytes # 0.6 K/mcL (0.0-1.3); Monocytes % 7.4 %; Neutrophils # 6.3 K/mcL (1.6-8.9); Platelet Count 156 K/mcL (140-400); Red Blood Count 4.71 M/mcL (4.19-5.50); Red Cell Distribution Width 13.1 % (11.5-14.5); Segmented Neutrophils % 79.3 %; White Blood Count 7.9 K/mcL (4.3-11.1)
[2021-11-10 05:03] LABS: INR 1.7; Prothrombin Time 18.4 Seconds (9.4-12.1)
[2021-11-10 05:16] LABS: Albumin 3.9 g/dL (3.5-5.7); Albumin/Globulin Ratio 1.6 (1.1-2.2); Bilirubin,Total 0.5 mg/dL (0.3-1.0); Calcium 7.8 mg/dL (8.6-10.3); Globulin 2.4 g/dL (2.4-3.5); Potassium 4.7 mEq/L (3.5-5.1); Total Protein 6.3 g/dL (6.4-8.9)
[2021-11-10] MEDS: MethylPREDNISolone 40 MG/ML VIAL IVP SCH (05:20)
[2021-11-10] MEDS: Ondansetron 4 MG/2 ML VIAL IVP PRN ×2 (05:20→13:29)
[2021-11-10] MEDS: 0.9 % Sodium Chloride 1,000 ML IVC SCH (05:21)
[2021-11-10] MEDS: Budesonide/Formoterol 160/4.5 1 PUFF INH IH SCH ×2 (07:40→19:58)
[2021-11-10] MEDS: Metoprolol XL (24 HR) Succ 50 MG TAB.ER.24H PO SCH (08:44)
[2021-11-10] MEDS: allopurinoL 100 MG TABLET PO SCH ×2 (08:44→20:53)
[2021-11-10] MEDS: DilTIAZem CD (24hr) 180 MG CAP.ER.24H PO SCH ×2 (08:44→20:53)
[2021-11-10] MEDS: Gabapentin 300 MG CAPSULE PO SCH ×2 (08:44→20:53)
[2021-11-10] MEDS: BuPROPion XL (24 HR) 150 MG TABLET PO SCH (08:44)
[2021-11-10] MEDS: cefTRIAXone 1,000 MG in 0.9 % Sodium Chloride 10 ML IVP SCH (08:45)
[2021-11-10] MEDS: Insulin LISPRO 300 UNITS/3 ML VIAL SUBQ SCH ×4 (08:52→20:52)
[2021-11-10] MEDS ORDERED: *HR* Warfarin 5 MG TABLET PO ONE (18:00)
[2021-11-10] MEDS: rOPINIRole 1 MG TABLET PO SCH (20:53)
[2021-11-10] MEDS: Azithromycin 500 MG in 0.9 % Sodium Chloride 250 ML IVPB SCH (20:53)
[2021-11-11] MEDS: Levalbuterol Neb 0.63 MG/3 ML IH SCH ×4 (04:27→20:21)
[2021-11-11 05:01] LABS: Basophils % 0.4 %; Eosinophils % 0.2 %; Hematocrit 43.6 % (37.5-50.1); Hemoglobin 14.1 g/dL (12.9-16.9); Immature Granulocytes % 2.7 % (0-4); Immature Platelets 3.5 % (1.1-6.1); Lymphocytes # 1.3 K/mcL (0.6-4.6); Lymphocytes % 15.7 %; Mean Corpuscular HGB Conc 32.3 g/dL (31.6-35.5); Mean Corpuscular Hemoglobin 29.5 pg (28.0-33.3); Mean Corpuscular Volume 91.2 fL (83.0-100.0); Mean Platelet Volume 9.4 fL (9.4-12.4); Monocytes % 11.8 %; Neutrophils # 5.7 K/mcL (1.6-8.9); Platelet Count 166 K/mcL (140-400); Red Blood Count 4.78 M/mcL (4.19-5.50); Segmented Neutrophils % 69.2 %; White Blood Count 8.2 K/mcL (4.3-11.1)
[2021-11-11 05:06] LABS: INR 1.7; Prothrombin Time 18.5 Seconds (9.4-12.1)
[2021-11-11 05:19] LABS: BUN/Creatinine Ratio 30 (6-26); Blood Urea Nitrogen 42 mg/dL (8-23); Calcium 7.5 mg/dL (8.6-10.3); Carbon Dioxide 28 mEq/L (23-29); Chloride 100 mEq/L (98-107); Glucose 129 mg/dL (70-105); Osmolality,Calculated 292 (280-300); Sodium 135 mEq/L (136-145); eGFR For African Americans > 60 (> 60); eGFR For Non-African Americans 52 (> 60)
[2021-11-11] MEDS: Insulin LISPRO 300 UNITS/3 ML VIAL SUBQ SCH ×4 (08:47→20:25)
[2021-11-11] MEDS: Gabapentin 300 MG CAPSULE PO SCH ×2 (08:51→20:25)
[2021-11-11] MEDS: BuPROPion XL (24 HR) 150 MG TABLET PO SCH (08:51)
[2021-11-11] MEDS: Metoprolol XL (24 HR) Succ 50 MG TAB.ER.24H PO SCH (08:51)
[2021-11-11] MEDS: DilTIAZem CD (24hr) 180 MG CAP.ER.24H PO SCH ×2 (08:51→20:25)
[2021-11-11] MEDS: allopurinoL 100 MG TABLET PO SCH ×2 (08:51→20:25)
[2021-11-11] MEDS ORDERED: predniSONE 20 MG TABLET PO SCH (09:00)
[2021-11-11] MEDS ORDERED: Simethicone 80 MG TAB.CHEW PO PRN (10:42)
[2021-11-11] MEDS ORDERED: Furosemide Oral Soln 40 MG/4 ML UDC PO ONE (10:44)
[2021-11-11] MEDS ORDERED: Metoclopramide 10 MG/2 ML VIAL IVP ONE (10:57)
[2021-11-11] MEDS: Budesonide/Formoterol 160/4.5 1 PUFF INH IH SCH ×2 (11:12→20:19)
[2021-11-11] MEDS: Acetylcysteine 10% 2 ML INHSOL IH SCH ×3 (11:12→20:21)
[2021-11-11] MEDS: GuaiFENesin/Dextromethorphan TABLET PO SCH ×2 (11:29→20:25)
[2021-11-11] MEDS ORDERED: Methylnaltrexone 12 MG/0.6 ML SYRINGE SQ ONE (14:30)
[2021-11-11] MEDS ORDERED: *HR* Warfarin 7.5 MG TABLET PO ONE (18:00)
[2021-11-11] MEDS: hydrOXYzine pamoate 25 MG CAPSULE PO PRN (20:25)
[2021-11-11] MEDS: rOPINIRole 1 MG TABLET PO SCH (20:25)
[2021-11-12] MEDS: Levalbuterol Neb 0.63 MG/3 ML IH SCH ×4 (04:25→23:33)
[2021-11-12 06:12] LABS: Basophils % 0.3 %; Eosinophils # 0.1 K/mcL (0.0-0.6); Eosinophils % 0.6 %; Hematocrit 43.1 % (37.5-50.1); Hemoglobin 13.7 g/dL (12.9-16.9); Immature Granulocytes % 4.2 % (0-4); Lymphocytes # 1.4 K/mcL (0.6-4.6); Lymphocytes % 13.6 %; Mean Corpuscular HGB Conc 31.8 g/dL (31.6-35.5); Mean Corpuscular Hemoglobin 29.1 pg (28.0-33.3); Mean Corpuscular Volume 91.5 fL (83.0-100.0); Mean Platelet Volume 9.4 fL (9.4-12.4); Monocytes # 0.7 K/mcL (0.0-1.3); Monocytes % 6.9 %; Neutrophils # 7.4 K/mcL (1.6-8.9); Nucleated Red Blood Cells 0.2 /100 WBC (0); Platelet Count 155 K/mcL (140-400); Red Blood Count 4.71 M/mcL (4.19-5.50); Red Cell Distribution Width 13.2 % (11.5-14.5); Segmented Neutrophils % 74.4 %
[2021-11-12 06:17] LABS: INR 1.9; Prothrombin Time 21.4 Seconds (9.4-12.1)
[2021-11-12 07:14] LABS: BUN/Creatinine Ratio 32 (6-26); Blood Urea Nitrogen 44 mg/dL (8-23); Calcium 7.5 mg/dL (8.6-10.3); Carbon Dioxide 25 mEq/L (23-29); Chloride 104 mEq/L (98-107); Glucose 151 mg/dL (70-105); Osmolality,Calculated 298 (280-300); Potassium 4.2 mEq/L (3.5-5.1); Sodium 137 mEq/L (136-145); eGFR For African Americans > 60 (> 60); eGFR For Non-African Americans 53 (> 60)
[2021-11-12] MEDS: DilTIAZem CD (24hr) 180 MG CAP.ER.24H PO SCH ×2 (08:32→20:49)
[2021-11-12] MEDS: GuaiFENesin/Dextromethorphan TABLET PO SCH ×2 (08:37→20:49)
[2021-11-12] MEDS: Furosemide 40 MG TABLET PO SCH ×2 (08:37→20:49)
[2021-11-12] MEDS: Metoprolol XL (24 HR) Succ 50 MG TAB.ER.24H PO SCH (08:38)
[2021-11-12] MEDS: Gabapentin 300 MG CAPSULE PO SCH ×2 (08:38→20:49)
[2021-11-12] MEDS: allopurinoL 100 MG TABLET PO SCH ×2 (08:39→21:12)
[2021-11-12] MEDS: BuPROPion XL (24 HR) 150 MG TABLET PO SCH (08:39)
[2021-11-12] MEDS: Insulin LISPRO 300 UNITS/3 ML VIAL SUBQ SCH ×4 (08:41→20:48)
[2021-11-12] MEDS: Budesonide/Formoterol 160/4.5 1 PUFF INH IH SCH ×2 (09:46→23:33)
[2021-11-12] MEDS ORDERED: Milk and Molasses Enema 200 ML RC ONE (12:54)
[2021-11-12] MEDS ORDERED: Metoclopramide 10 MG/2 ML VIAL IVP STA (17:40)
[2021-11-12] MEDS ORDERED: *HR* Warfarin 5 MG TABLET PO ONE (18:00)
[2021-11-12] MEDS: rOPINIRole 1 MG TABLET PO SCH (20:49)
[2021-11-13] MEDS: Metoclopramide 10 MG/10 ML UD.LIQ PO SCH ×3 (00:41→15:37)
[2021-11-13] MEDS: Ondansetron 4 MG/2 ML VIAL IVP PRN (00:55)
[2021-11-13] MEDS: Levalbuterol Neb 0.63 MG/3 ML IH SCH ×3 (03:41→16:05)
[2021-11-13 04:50] VITALS: BP 110/62; TEMP 98
[2021-11-13 05:07] LABS: Basophils % 0.4 %; Eosinophils # 0.2 K/mcL (0.0-0.6); Eosinophils % 1.7 %; Hematocrit 42.9 % (37.5-50.1); Hemoglobin 13.7 g/dL (12.9-16.9); Immature Granulocytes % 6.4 % (0-4); Lymphocytes # 1.9 K/mcL (0.6-4.6); Lymphocytes % 19.7 %; Mean Corpuscular HGB Conc 31.9 g/dL (31.6-35.5); Mean Corpuscular Hemoglobin 29.7 pg (28.0-33.3); Mean Corpuscular Volume 92.9 fL (83.0-100.0); Mean Platelet Volume 9.7 fL (9.4-12.4); Monocytes # 0.6 K/mcL (0.0-1.3); Monocytes % 6.1 %; Neutrophils # 6.2 K/mcL (1.6-8.9); Nucleated Red Blood Cells 0.3 /100 WBC (0); Platelet Count 149 K/mcL (140-400); Red Blood Count 4.62 M/mcL (4.19-5.50); Red Cell Distribution Width 13.5 % (11.5-14.5); Segmented Neutrophils % 65.7 %; White Blood Count 9.4 K/mcL (4.3-11.1)
[2021-11-13 05:14] LABS: INR 2.3; Prothrombin Time 25.8 Seconds (9.4-12.1)
[2021-11-13 05:25] LABS: BUN/Creatinine Ratio 38 (6-26); Blood Urea Nitrogen 44 mg/dL (8-23); Calcium 7.6 mg/dL (8.6-10.3); Carbon Dioxide 28 mEq/L (23-29); Chloride 104 mEq/L (98-107); Glucose 142 mg/dL (70-105); Osmolality,Calculated 302 (280-300); Sodium 139 mEq/L (136-145); eGFR For African Americans > 60 (> 60); eGFR For Non-African Americans > 60 (> 60)
[2021-11-13 05:42] LABS: Platelet Estimate Normal (Normal)
[2021-11-13] MEDS: Insulin LISPRO 300 UNITS/3 ML VIAL SUBQ SCH ×3 (07:54→16:31)
[2021-11-13] MEDS: Budesonide/Formoterol 160/4.5 1 PUFF INH IH SCH (08:00)
[2021-11-13] MEDS: Gabapentin 300 MG CAPSULE PO SCH (08:05)
[2021-11-13] MEDS: GuaiFENesin/Dextromethorphan TABLET PO SCH (08:05)
[2021-11-13] MEDS: BuPROPion XL (24 HR) 150 MG TABLET PO SCH (08:05)
[2021-11-13] MEDS: Furosemide 40 MG TABLET PO SCH (08:06)
[2021-11-13] MEDS: DilTIAZem CD (24hr) 180 MG CAP.ER.24H PO SCH (08:06)
[2021-11-13] MEDS: allopurinoL 100 MG TABLET PO SCH (08:06)
[2021-11-13] MEDS: Metoprolol XL (24 HR) Succ 50 MG TAB.ER.24H PO SCH (08:06)
[2021-11-13] MEDS ORDERED: Sennosides/Docusate Sodium TABLET PO ONE (09:28)
[2021-11-13] MEDS ORDERED: polyethylene glycoL 3350 17 GM POWD.PACK PO ONE (09:29)
[2021-11-13 11:40] VITALS: PULSE 96; O2SAT 92
[2021-11-13] MEDS ORDERED: *HR* Warfarin 5 MG TABLET PO ONE (18:00)
== END 2021-11-13 17:22 | disposition home or self-care (01) | DRG 388 ==
LOC: 2NENU → SUATTDRO 11-08 11:00
PROVIDERS: ADMIT Internal Medicine; ATTEND Student in an Organized Health Care Education/Training Program

== ENCOUNTER 2022-01-31 18:50 | Inpatient (IN) ==
[2022-01-31] MEDS ORDERED: Ondansetron 4 MG/2 ML VIAL IVP PRN (22:01)
[2022-01-31] MEDS ORDERED: Naloxone 0.4 MG/ML INJ IVP PRN (22:01)
[2022-01-31] MEDS ORDERED: Melatonin 3 MG TABLET PO PRN (22:01)
[2022-01-31] MEDS ORDERED: Acetaminophen 325 MG TABLET PO PRN (22:01)
[2022-01-31] MEDS ORDERED: Levalbuterol Neb 1.25 MG/3 ML ONE (22:30)
[2022-01-31] MEDS: Levalbuterol Neb 1.25 MG/3 ML IH SCH (22:37)
[2022-01-31] MEDS ORDERED: Ipratropium/Albuterol Neb 3 ML IH PRN (22:39)
[2022-01-31] MEDS ORDERED: Azithromycin 500 MG in 0.9 % Sodium Chloride 250 ML IVPB SCH (23:00)
[2022-01-31] MEDS ORDERED: Ipratropium/Albuterol Neb 3 ML IH SCH (23:00)
[2022-02-01] MEDS ORDERED: Amiodarone Premix 360 MG/200 ML BAG IVC ONE (01:27)
[2022-02-01] MEDS ORDERED: Perflutren Lipid Microsphere 1.3 ML in 0.9 % Sodium Chloride 8.7 ML IVP PRN (03:22)
[2022-02-01] MEDS: Levalbuterol Neb 1.25 MG/3 ML IH SCH ×4 (03:37→22:54)
[2022-02-01] MEDS ORDERED: Furosemide 40 MG/4 ML VIAL IVP SCH (04:00)
[2022-02-01] MEDS ORDERED: *HR* Metoprolol 5 MG/5 ML VIAL IVP ONE (06:44)
[2022-02-01] MEDS ORDERED: Amiodarone Premix 360 MG/200 ML BAG IVC SCH (07:23)
[2022-02-01 08:13] LABS: Basophils # 0.1 K/mcL (0.0-0.2); Basophils % 0.7 %; Eosinophils # 0.1 K/mcL (0.0-0.6); Eosinophils % 1.6 %; Hematocrit 45.1 % (37.5-50.1); Hemoglobin 14.4 g/dL (12.9-16.9); Immature Granulocytes % 1.8 % (0-4); Lymphocytes # 1.3 K/mcL (0.6-4.6); Lymphocytes % 19.4 %; Mean Corpuscular HGB Conc 31.9 g/dL (31.6-35.5); Monocytes # 0.6 K/mcL (0.0-1.3); Monocytes % 9.5 %; Neutrophils # 4.5 K/mcL (1.6-8.9); Nucleated Red Blood Cells 0.3 /100 WBC (0); Platelet Count 141 K/mcL (140-400); Red Cell Distribution Width 15.2 % (11.5-14.5); White Blood Count 6.8 K/mcL (4.3-11.1)
[2022-02-01 08:22] LABS: INR 2.1; Prothrombin Time 22.9 Seconds (9.4-12.1)
[2022-02-01 08:45] LABS: Alanine Aminotransferase 16 Units/L (7-52); Albumin 4.1 g/dL (3.5-5.7); Albumin/Globulin Ratio 1.9 (1.1-2.2); Alkaline Phosphatase 65 Units/L (34-104); Aspartate Amino Transferase 8 Units/L (13-39); BUN/Creatinine Ratio 36 (6-26); Bilirubin,Total 0.4 mg/dL (0.3-1.0); Blood Urea Nitrogen 50 mg/dL (8-23); Calcium 8.7 mg/dL (8.6-10.3); Carbon Dioxide 30 mEq/L (23-29); Chloride 100 mEq/L (98-107); Globulin 2.2 g/dL (2.4-3.5); Glucose 110 mg/dL (70-105); Osmolality,Calculated 300 (280-300); Phosphorous 3.2 mg/dL (2.7-4.5); Potassium 4.3 mEq/L (3.5-5.1); Sodium 138 mEq/L (136-145); Total Protein 6.3 g/dL (6.4-8.9); Troponin I < 0.03 ng/mL (< 0.04); eGFR For African Americans > 60 (> 60); eGFR For Non-African Americans 52 (> 60)
[2022-02-01 09:19] LABS: Estimated Average Glucose 143 mg/dl; Hemoglobin A1C 6.6 %
[2022-02-01] MEDS ORDERED: DilTIAZem 50 MG in 0.9 % Sodium Chloride 40 ML IVC SCH ×2 (10:30→11:20)
[2022-02-01] MEDS ORDERED: Furosemide 40 MG/4 ML VIAL IVP ONE (10:38)
[2022-02-01 10:54] LABS: ABG Base Excess 4 mEq/L (-2 to 3); ABG HCO3 30 mEq/L (21-27); ABG Oxygen Saturation 92 % (95-98); ABG PCO2 48 mmHg (35-45); ABG PO2 66 mmHg (85-104); ABG TCO2 31 mEq/L (20-26)
[2022-02-01] MEDS ORDERED: *HR* Digoxin 0.5 MG/2 ML AMPUL IVP ONE (13:30)
[2022-02-01] MEDS ORDERED: Warfarin perPT PO PRN (18:00)
[2022-02-01] MEDS ORDERED: *HR* Warfarin 2.5 MG TABLET PO ONE (18:00)
[2022-02-01] MEDS: DilTIAZem 50 MG in 0.9 % Sodium Chloride 40 ML IVC SCH ×2 (18:02→21:37)
[2022-02-01] MEDS: Gabapentin 300 MG CAPSULE PO SCH (21:00)
[2022-02-01] MEDS: allopurinoL 100 MG TABLET PO SCH (21:00)
[2022-02-01] MEDS: Furosemide 40 MG/4 ML VIAL IVP SCH (21:00)
[2022-02-01] MEDS: Budesonide/Formoterol 160/4.5 1 PUFF INH IH SCH (22:54)
[2022-02-02] MEDS: DilTIAZem 50 MG in 0.9 % Sodium Chloride 40 ML IVC SCH ×5 (00:32→20:55)
[2022-02-02] MEDS: *HR* Metoprolol 5 MG/5 ML VIAL IVP PRN ×3 (00:33→17:28)
[2022-02-02] MEDS: *HR* OxyCODONE/APAP 10/325 TABLET PO PRN ×5 (00:58→19:55)
[2022-02-02] MEDS: Levalbuterol Neb 1.25 MG/3 ML IH SCH ×4 (04:02→23:10)
[2022-02-02 04:14] LABS: ABG Base Excess 8 mEq/L (-2 to 3); ABG HCO3 35 mEq/L (21-27); ABG Oxygen Saturation 99 % (95-98); ABG PCO2 58 mmHg (35-45); ABG PH 7.39 pH Units (7.32-7.45); ABG PO2 156 mmHg (85-104); ABG TCO2 37 mEq/L (20-26)
[2022-02-02 06:21] LABS: Hematocrit 46.7 % (37.5-50.1); Hemoglobin 14.8 g/dL (12.9-16.9); Mean Corpuscular HGB Conc 31.7 g/dL (31.6-35.5); Mean Corpuscular Volume 94.5 fL (83.0-100.0); Mean Platelet Volume 9.1 fL (9.4-12.4); Platelet Count 161 K/mcL (140-400); Red Blood Count 4.94 M/mcL (4.19-5.50); Red Cell Distribution Width 15.1 % (11.5-14.5); White Blood Count 6.3 K/mcL (4.3-11.1)
[2022-02-02 06:29] LABS: INR 1.4; Prothrombin Time 15.3 Seconds (9.4-12.1)
[2022-02-02 07:08] LABS: BUN/Creatinine Ratio 31 (6-26); Blood Urea Nitrogen 37 mg/dL (8-23); Calcium 9.2 mg/dL (8.6-10.3); Carbon Dioxide 34 mEq/L (23-29); Chloride 97 mEq/L (98-107); Glucose 133 mg/dL (70-105); Magnesium 1.8 mg/dL (1.6-2.6); Osmolality,Calculated 295 (280-300); Potassium 4.1 mEq/L (3.5-5.1); Sodium 137 mEq/L (136-145); eGFR For African Americans > 60 (> 60); eGFR For Non-African Americans > 60 (> 60)
[2022-02-02] MEDS: BuPROPion XL (24 HR) 150 MG TABLET PO SCH (08:49)
[2022-02-02] MEDS: Furosemide 40 MG/4 ML VIAL IVP SCH ×2 (08:49→19:56)
[2022-02-02] MEDS: allopurinoL 100 MG TABLET PO SCH ×2 (08:50→19:55)
[2022-02-02] MEDS: Gabapentin 300 MG CAPSULE PO SCH ×2 (08:50→19:55)
[2022-02-02] MEDS: Budesonide/Formoterol 160/4.5 1 PUFF INH IH SCH ×2 (11:12→23:10)
[2022-02-02] MEDS ORDERED: *HR* Warfarin 5 MG TABLET PO ONE (18:00)
[2022-02-02] MEDS ORDERED: *HR* Digoxin 0.5 MG/2 ML AMPUL IVP ONE (18:46)
[2022-02-02] MEDS: Fluticasone Propionate Nasal 50 MCG/SPRAY BOTTLE NS PRN (20:53)
[2022-02-02] MEDS: *HR* HYDROcodone/Acet 5/325 mg TABLET PO PRN (21:33)
[2022-02-02] MEDS: *HR* LORazepam 1 MG TABLET PO PRN (23:17)
[2022-02-03] MEDS: DilTIAZem 50 MG in 0.9 % Sodium Chloride 40 ML IVC SCH ×3 (01:08→10:40)
[2022-02-03] MEDS: Levalbuterol Neb 1.25 MG/3 ML IH SCH ×4 (03:32→21:57)
[2022-02-03 05:55] LABS: Hematocrit 48.6 % (37.5-50.1); Hemoglobin 15.4 g/dL (12.9-16.9); Mean Corpuscular HGB Conc 31.7 g/dL (31.6-35.5); Mean Corpuscular Hemoglobin 30.1 pg (28.0-33.3); Mean Corpuscular Volume 94.9 fL (83.0-100.0); Mean Platelet Volume 9.2 fL (9.4-12.4); Platelet Count 149 K/mcL (140-400); Red Blood Count 5.12 M/mcL (4.19-5.50); Red Cell Distribution Width 14.9 % (11.5-14.5); White Blood Count 7.5 K/mcL (4.3-11.1)
[2022-02-03 06:02] LABS: INR 1.4; Prothrombin Time 15.3 Seconds (9.4-12.1)
[2022-02-03 06:17] LABS: BUN/Creatinine Ratio 28 (6-26); Blood Urea Nitrogen 34 mg/dL (8-23); Calcium 9.3 mg/dL (8.6-10.3); Carbon Dioxide 34 mEq/L (23-29); Chloride 97 mEq/L (98-107); Glucose 126 mg/dL (70-105); Osmolality,Calculated 297 (280-300); Potassium 4.2 mEq/L (3.5-5.1); Sodium 139 mEq/L (136-145); eGFR For African Americans > 60 (> 60); eGFR For Non-African Americans > 60 (> 60)
[2022-02-03] MEDS: *HR* OxyCODONE/APAP 10/325 TABLET PO PRN ×4 (06:32→23:10)
[2022-02-03] MEDS: *HR* Digoxin 0.25 MG TABLET PO SCH (09:06)
[2022-02-03] MEDS: BuPROPion XL (24 HR) 150 MG TABLET PO SCH (09:06)
[2022-02-03] MEDS: allopurinoL 100 MG TABLET PO SCH ×2 (09:06→19:22)
[2022-02-03] MEDS: Furosemide 40 MG/4 ML VIAL IVP SCH ×2 (09:07→19:22)
[2022-02-03] MEDS: Gabapentin 300 MG CAPSULE PO SCH ×2 (09:07→19:22)
[2022-02-03] MEDS: *HR* Metoprolol 5 MG/5 ML VIAL IVP PRN (10:00)
[2022-02-03] MEDS: Metoprolol XL (24 HR) Succ 50 MG TAB.ER.24H PO SCH (10:01)
[2022-02-03] MEDS: Budesonide/Formoterol 160/4.5 1 PUFF INH IH SCH ×2 (10:24→21:57)
[2022-02-03 10:46] LABS: VBG HCO3 33 mEq/L (21-27); VBG PCO2 47 mmHg (41-51); VBG PH 7.45 pH Units (7.32-7.42); VBG PO2 106 mmHg (25-50)
[2022-02-03] MEDS: DilTIAZem CD (24hr) 240 MG CAP.ER.24H PO SCH (15:30)
[2022-02-03] MEDS ORDERED: *HR* Warfarin 7.5 MG TABLET PO ONE (18:00)
[2022-02-03] MEDS: *HR* HYDROcodone/Acet 5/325 mg TABLET PO PRN (19:22)
[2022-02-03] MEDS: *HR* LORazepam 1 MG TABLET PO PRN (23:47)
[2022-02-04 02:50] LABS: Hematocrit 45.5 % (37.5-50.1); Hemoglobin 14.5 g/dL (12.9-16.9); Mean Corpuscular HGB Conc 31.9 g/dL (31.6-35.5); Mean Corpuscular Hemoglobin 30.1 pg (28.0-33.3); Mean Corpuscular Volume 94.6 fL (83.0-100.0); Mean Platelet Volume 9.5 fL (9.4-12.4); Platelet Count 174 K/mcL (140-400); Red Blood Count 4.81 M/mcL (4.19-5.50); Red Cell Distribution Width 14.7 % (11.5-14.5)
[2022-02-04 02:57] LABS: INR 1.3
[2022-02-04 03:11] LABS: BUN/Creatinine Ratio 27 (6-26); Blood Urea Nitrogen 38 mg/dL (8-23); Carbon Dioxide 33 mEq/L (23-29); Chloride 96 mEq/L (98-107); Glucose 141 mg/dL (70-105); Osmolality,Calculated 297 (280-300); Potassium 4.3 mEq/L (3.5-5.1); Sodium 138 mEq/L (136-145); eGFR For African Americans > 60 (> 60); eGFR For Non-African Americans 52 (> 60)
[2022-02-04] MEDS: Levalbuterol Neb 1.25 MG/3 ML IH SCH ×4 (04:20→22:35)
[2022-02-04] MEDS: *HR* OxyCODONE/APAP 10/325 TABLET PO PRN ×4 (06:06→22:20)
[2022-02-04] MEDS: allopurinoL 100 MG TABLET PO SCH ×2 (08:27→19:31)
[2022-02-04] MEDS: BuPROPion XL (24 HR) 150 MG TABLET PO SCH (08:27)
[2022-02-04] MEDS: DilTIAZem CD (24hr) 240 MG CAP.ER.24H PO SCH (08:27)
[2022-02-04] MEDS: Gabapentin 300 MG CAPSULE PO SCH ×2 (08:27→19:31)
[2022-02-04] MEDS: *HR* Digoxin 0.25 MG TABLET PO SCH (08:27)
[2022-02-04] MEDS: Furosemide 40 MG/4 ML VIAL IVP SCH (08:28)
[2022-02-04] MEDS: Metoprolol XL (24 HR) Succ 50 MG TAB.ER.24H PO SCH (08:28)
[2022-02-04] MEDS: Budesonide/Formoterol 160/4.5 1 PUFF INH IH SCH ×2 (10:47→22:35)
[2022-02-04] MEDS ORDERED: Furosemide 40 MG TABLET PO SCH (17:00)
[2022-02-04] MEDS ORDERED: *HR* Warfarin 10 MG TABLET PO ONE (18:00)
[2022-02-04] MEDS: *HR* HYDROcodone/Acet 5/325 mg TABLET PO PRN (19:31)
[2022-02-04] MEDS: Apixaban 5 MG TABLET PO SCH (21:38)
[2022-02-04] MEDS: *HR* LORazepam 1 MG TABLET PO PRN (23:49)
[2022-02-05] MEDS ORDERED: Apixaban 5 MG TABLET PO SCH (00:01)
[2022-02-05 02:12] LABS: Hematocrit 43.2 % (37.5-50.1); Hemoglobin 13.8 g/dL (12.9-16.9); Mean Corpuscular HGB Conc 31.9 g/dL (31.6-35.5); Mean Corpuscular Hemoglobin 30.1 pg (28.0-33.3); Mean Corpuscular Volume 94.1 fL (83.0-100.0); Mean Platelet Volume 9.4 fL (9.4-12.4); Platelet Count 155 K/mcL (140-400); Red Blood Count 4.59 M/mcL (4.19-5.50); Red Cell Distribution Width 14.6 % (11.5-14.5); White Blood Count 8.2 K/mcL (4.3-11.1)
[2022-02-05 02:22] LABS: INR 1.7; Prothrombin Time 18.4 Seconds (9.4-12.1)
[2022-02-05 02:31] LABS: BUN/Creatinine Ratio 32 (6-26); Blood Urea Nitrogen 46 mg/dL (8-23); Calcium 9.8 mg/dL (8.6-10.3); Carbon Dioxide 33 mEq/L (23-29); Chloride 96 mEq/L (98-107); Glucose 117 mg/dL (70-105); Osmolality,Calculated 295 (280-300); Potassium 4.6 mEq/L (3.5-5.1); Sodium 136 mEq/L (136-145); eGFR For African Americans > 60 (> 60); eGFR For Non-African Americans 50 (> 60)
[2022-02-05] MEDS: Levalbuterol Neb 1.25 MG/3 ML IH SCH ×4 (03:50→22:56)
[2022-02-05] MEDS: *HR* OxyCODONE/APAP 10/325 TABLET PO PRN (06:08)
[2022-02-05] MEDS: *HR* HYDROcodone/Acet 5/325 mg TABLET PO PRN (08:21)
[2022-02-05] MEDS: *HR* Digoxin 0.25 MG TABLET PO SCH (08:22)
[2022-02-05] MEDS: BuPROPion XL (24 HR) 150 MG TABLET PO SCH (08:22)
[2022-02-05] MEDS: Metoprolol XL (24 HR) Succ 50 MG TAB.ER.24H PO SCH (08:22)
[2022-02-05] MEDS: DilTIAZem CD (24hr) 240 MG CAP.ER.24H PO SCH (08:22)
[2022-02-05] MEDS: Apixaban 5 MG TABLET PO SCH ×2 (08:23→21:21)
[2022-02-05] MEDS: allopurinoL 100 MG TABLET PO SCH ×2 (08:23→21:22)
[2022-02-05] MEDS: Budesonide/Formoterol 160/4.5 1 PUFF INH IH SCH ×2 (09:41→22:56)
[2022-02-05] MEDS: *HR* OxyCODONE Immed Rel 5 MG TABLET PO PRN ×3 (12:44→21:22)
[2022-02-05] MEDS: predniSONE 20 MG TABLET PO SCH (12:44)
[2022-02-05] MEDS: Albumin 25% 12.5gm/50mL 12.5 GM/50 ML IV.SOLN IVPB SCH ×2 (16:19→23:27)
[2022-02-05] MEDS: *HR* LORazepam 1 MG TABLET PO PRN (23:27)
[2022-02-06 02:30] LABS: Calcium 10.2 mg/dL (8.6-10.3); Magnesium 1.9 mg/dL (1.6-2.6); Potassium 4.7 mEq/L (3.5-5.1)
[2022-02-06] MEDS: Levalbuterol Neb 1.25 MG/3 ML IH SCH ×4 (04:18→22:29)
[2022-02-06] MEDS: DilTIAZem CD (24hr) 240 MG CAP.ER.24H PO SCH (08:12)
[2022-02-06] MEDS: *HR* OxyCODONE Immed Rel 5 MG TABLET PO PRN ×4 (08:12→23:25)
[2022-02-06] MEDS: BuPROPion XL (24 HR) 150 MG TABLET PO SCH (08:12)
[2022-02-06] MEDS: *HR* Digoxin 0.25 MG TABLET PO SCH (08:12)
[2022-02-06] MEDS: predniSONE 20 MG TABLET PO SCH (08:13)
[2022-02-06] MEDS: Apixaban 5 MG TABLET PO SCH ×2 (08:13→20:32)
[2022-02-06] MEDS: allopurinoL 100 MG TABLET PO SCH ×2 (08:13→20:32)
[2022-02-06] MEDS: Metoprolol XL (24 HR) Succ 50 MG TAB.ER.24H PO SCH (08:13)
[2022-02-06] MEDS: Albumin 25% 12.5gm/50mL 12.5 GM/50 ML IV.SOLN IVPB SCH (08:14)
[2022-02-06] MEDS: Fluticasone Propionate Nasal 50 MCG/SPRAY BOTTLE NS PRN (08:20)
[2022-02-06] MEDS: Budesonide/Formoterol 160/4.5 1 PUFF INH IH SCH ×2 (10:11→22:29)
[2022-02-06] MEDS: *HR* HYDROcodone/Acet 5/325 mg TABLET PO PRN (11:58)
[2022-02-06] MEDS ORDERED: Methylnaltrexone 12 MG/0.6 ML SYRINGE SQ ONE (12:02)
[2022-02-06] MEDS: *HR* LORazepam 1 MG TABLET PO PRN (23:25)
[2022-02-07 01:27] LABS: Calcium 9.5 mg/dL (8.6-10.3); Potassium 4.6 mEq/L (3.5-5.1)
[2022-02-07] MEDS: Levalbuterol Neb 1.25 MG/3 ML IH SCH ×2 (04:00→10:01)
[2022-02-07] MEDS: *HR* OxyCODONE Immed Rel 5 MG TABLET PO PRN (05:18)
[2022-02-07] MEDS: *HR* HYDROcodone/Acet 5/325 mg TABLET PO PRN ×2 (06:46→08:37)
[2022-02-07] MEDS: BuPROPion XL (24 HR) 150 MG TABLET PO SCH (08:36)
[2022-02-07] MEDS: predniSONE 20 MG TABLET PO SCH (08:36)
[2022-02-07] MEDS: Apixaban 5 MG TABLET PO SCH (08:37)
[2022-02-07] MEDS: allopurinoL 100 MG TABLET PO SCH (08:37)
[2022-02-07] MEDS: DilTIAZem CD (24hr) 240 MG CAP.ER.24H PO SCH (08:37)
[2022-02-07] MEDS: Gabapentin 300 MG CAPSULE PO SCH (08:38)
[2022-02-07] MEDS: Metoprolol XL (24 HR) Succ 50 MG TAB.ER.24H PO SCH (08:38)
[2022-02-07] MEDS: *HR* Digoxin 0.25 MG TABLET PO SCH (08:38)
[2022-02-07] MEDS ORDERED: Furosemide 40 MG/4 ML VIAL IVP SCH (09:00)
[2022-02-07] MEDS: Budesonide/Formoterol 160/4.5 1 PUFF INH IH SCH (10:01)
[2022-02-07 11:32] VITALS: BP 95/69; PULSE 102; TEMP 98.1; O2SAT 93
[2022-02-07] MEDS ORDERED: Furosemide 40 MG TABLET PO SCH (17:00)
== END 2022-02-07 13:30 | disposition home or self-care (01) | DRG 291 ==
LOC: 2NNU → SUATTDRO 02-01 14:07 → 3NENU 02-06 20:06
PROVIDERS: ADMIT Student in an Organized Health Care Education/Training Program; ATTEND Student in an Organized Health Care Education/Training Program

== ENCOUNTER 2022-04-20 06:30 | Observation (INO) ==
[2022-04-20] MEDS ORDERED: 0.9 % Sodium Chloride 1,000 ML ONE ×2 (06:47→08:02)
[2022-04-20] MEDS ORDERED: Nitroglycerin 1,000 MCG/5 ML VIAL IV ONE (08:02)
[2022-04-20] MEDS ORDERED: Iopamidol - 370 200 ML INFUS..BTL ONE (08:02)
[2022-04-20] MEDS ORDERED: *HR* Midazolam HCl 2 MG/2 ML VIAL ONE (08:02)
[2022-04-20] MEDS ORDERED: *HR* FentaNYL (PF) 100 MCG/2 ML VIAL ONE (08:02)
[2022-04-20] MEDS ORDERED: *HR* Heparin 10,000 UNIT/10 ML VIAL ONE (08:02)
[2022-04-20] MEDS ORDERED: Heparin 1,000 UNITS/500 mL 500 ML ONE (08:02)
[2022-04-20] MEDS ORDERED: Famotidine 20 MG/2 ML VIAL ONE ×2 (08:09)
[2022-04-20] MEDS ORDERED: Bumetanide 1 MG/4 ML VIAL IVP ONE (09:30)
[2022-04-20] MEDS ORDERED: Ondansetron ODT 4 MG TAB.RAPDIS PO PRN (13:57)
[2022-04-20] MEDS ORDERED: Fluticasone Propionate Nasal 50 MCG/SPRAY BOTTLE NS PRN (13:57)
[2022-04-20] MEDS ORDERED: Nitroglycerin 0.4 MG TAB.SUBL SL PRN (13:57)
[2022-04-20] MEDS ORDERED: Levalbuterol Neb 0.63 MG/3 ML IH PRN (13:57)
[2022-04-20] MEDS ORDERED: PREDNISONE 10 MG PO SCH (14:00)
[2022-04-20] MEDS ORDERED: *HR* OxyCODONE ER (12 HR) 10 MG TABLET PO SCH (14:15)
[2022-04-20] MEDS: *HR* OxyCODONE/APAP 10/325 TABLET PO SCH ×2 (17:02→23:55)
[2022-04-20] MEDS: Gabapentin 300 MG CAPSULE PO SCH (17:02)
[2022-04-20] MEDS: DilTIAZem CD (24hr) 240 MG CAP.ER.24H PO SCH (17:02)
[2022-04-20] MEDS: Bumetanide 1 MG/4 ML VIAL IVP SCH (17:03)
[2022-04-20] MEDS: Budesonide/Formoterol 160/4.5 1 PUFF INH IH SCH (20:11)
[2022-04-20] MEDS: Apixaban 5 MG TABLET PO SCH (20:25)
[2022-04-20] MEDS: allopurinoL 100 MG TABLET PO SCH (20:25)
[2022-04-20] MEDS: Metoprolol XL (24 HR) Succ 50 MG TAB.ER.24H PO SCH (20:25)
[2022-04-21] MEDS: *HR* OxyCODONE/APAP 10/325 TABLET PO SCH ×2 (06:20→12:38)
[2022-04-21] MEDS ORDERED: Tiotropium 10 INH DOSE IH ONE (07:49)
[2022-04-21] MEDS: Budesonide/Formoterol 160/4.5 1 PUFF INH IH SCH (07:51)
[2022-04-21 08:21] VITALS: O2SAT 92
[2022-04-21] MEDS: allopurinoL 100 MG TABLET PO SCH (08:53)
[2022-04-21] MEDS: Metoprolol XL (24 HR) Succ 50 MG TAB.ER.24H PO SCH (08:53)
[2022-04-21] MEDS: DilTIAZem CD (24hr) 240 MG CAP.ER.24H PO SCH (08:54)
[2022-04-21] MEDS: Apixaban 5 MG TABLET PO SCH (08:56)
[2022-04-21] MEDS: Bumetanide 1 MG/4 ML VIAL IVP SCH (08:57)
[2022-04-21] MEDS: Gabapentin 300 MG CAPSULE PO SCH (08:57)
[2022-04-21] MEDS ORDERED: Gabapentin 300 MG CAPSULE PO SCH (09:00)
[2022-04-21] MEDS ORDERED: DilTIAZem CD (24hr) 240 MG CAP.ER.24H PO SCH (09:00)
[2022-04-21] MEDS ORDERED: Dextrose Gel 15 GM/37.5 ML TUBE PO PRN ×2 (09:59)
[2022-04-21] MEDS ORDERED: *HR* Dextrose 50 % in Water (Syg) 50 ML SYRINGE IVP PRN (09:59)
[2022-04-21] MEDS ORDERED: D5% in Water 1,000 ML IVC PRN (09:59)
[2022-04-21] MEDS ORDERED: Tiotropium 10 INH DOSE IH SCH (10:00)
[2022-04-21 11:09] LABS: Basophils % 0.4 %; Eosinophils % 0.4 %; Hematocrit 45.2 % (37.5-50.1); Hemoglobin 14.4 g/dL (12.9-16.9); Immature Granulocytes % 1.8 % (0-4); Lymphocytes # 1.1 K/mcL (0.6-4.6); Lymphocytes % 14.7 %; Mean Corpuscular HGB Conc 31.9 g/dL (31.6-35.5); Mean Corpuscular Hemoglobin 30.4 pg (28.0-33.3); Mean Corpuscular Volume 95.4 fL (83.0-100.0); Mean Platelet Volume 9.7 fL (9.4-12.4); Monocytes # 0.6 K/mcL (0.0-1.3); Monocytes % 8.7 %; Neutrophils # 5.5 K/mcL (1.6-8.9); Nucleated Red Blood Cells 0.7 /100 WBC (0); Platelet Count 169 K/mcL (140-400); Red Blood Count 4.74 M/mcL (4.19-5.50); White Blood Count 7.4 K/mcL (4.3-11.1)
[2022-04-21 11:26] LABS: Calcium 8.8 mg/dL (8.6-10.3)
[2022-04-21] MEDS ORDERED: Insulin LISPRO 300 UNITS/3 ML VIAL SUBQ SCH ×2 (11:30→21:00)
[2022-04-21 12:41] VITALS: BP 122/64; PULSE 80; TEMP 97.8
== END 2022-04-21 14:43 | disposition home or self-care (01) ==
LOC: 2ANU 06:30 → INVDIALAB 06:30 → 2ANU 10:45
PROVIDERS: ADMIT Internal Medicine; ATTEND Internal Medicine

== ENCOUNTER 2022-05-12 11:56 | Inpatient (IN) ==
[2022-05-12 13:01] LABS: Basophils # 0.1 K/mcL (0.0-0.2); Basophils % 0.7 %; Eosinophils # 0.1 K/mcL (0.0-0.6); Eosinophils % 0.9 %; Hematocrit 45.2 % (37.5-50.1); Hemoglobin 14.1 g/dL (12.9-16.9); Immature Granulocytes % 1.8 % (0-4); Lymphocytes % 13.2 %; Mean Corpuscular HGB Conc 31.2 g/dL (31.6-35.5); Mean Corpuscular Hemoglobin 29.5 pg (28.0-33.3); Mean Corpuscular Volume 94.6 fL (83.0-100.0); Mean Platelet Volume 9.5 fL (9.4-12.4); Monocytes # 0.7 K/mcL (0.0-1.3); Monocytes % 9.8 %; Neutrophils # 5.6 K/mcL (1.6-8.9); Nucleated Red Blood Cells 1.3 /100 WBC (0); Platelet Count 203 K/mcL (140-400); Red Blood Count 4.78 M/mcL (4.19-5.50); Red Cell Distribution Width 14.7 % (11.5-14.5); Segmented Neutrophils % 73.6 %; White Blood Count 7.6 K/mcL (4.3-11.1)
[2022-05-12 13:12] LABS: INR 1.5; Prothrombin Time 17.1 Seconds (9.4-12.1)
[2022-05-12 13:15] LABS: Activated Partial Thrombo Time 38.5 Seconds (26.0-36.0)
[2022-05-12 13:18] LABS: Calcium 9.4 mg/dL (8.6-10.3); Magnesium 1.7 mg/dL (1.6-2.6); Potassium 4.2 mEq/L (3.5-5.1)
[2022-05-12 13:24] LABS: Troponin I 0.04 ng/mL (< 0.04)
[2022-05-12 13:45] LABS: Thyroid Stimulating Hormone 2.05 mcIU/mL (0.340-5.600)
[2022-05-12] MEDS ORDERED: Furosemide 40 MG/4 ML VIAL IVP ONE ×2 (14:03→20:00)
[2022-05-12] MEDS ORDERED: Naloxone 0.4 MG/ML INJ IVP PRN (14:12)
[2022-05-12] MEDS ORDERED: Ondansetron 4 MG/2 ML VIAL IVP PRN (14:12)
[2022-05-12] MEDS ORDERED: Dextrose Gel 15 GM/37.5 ML TUBE PO PRN ×2 (14:33)
[2022-05-12] MEDS ORDERED: D5% in Water 1,000 ML IVC PRN (14:33)
[2022-05-12] MEDS ORDERED: *HR* Dextrose 50 % in Water (Syg) 50 ML SYRINGE IVP PRN (14:33)
[2022-05-12] MEDS: Ipratropium/Albuterol Neb 3 ML IH SCH ×2 (15:45→20:36)
[2022-05-12] MEDS: Insulin LISPRO 300 UNITS/3 ML VIAL SUBQ SCH ×2 (16:42→20:51)
[2022-05-12] MEDS ORDERED: *HR* Metoprolol 5 MG/5 ML VIAL IVP PRN (17:33)
[2022-05-12] MEDS: *HR* OxyCODONE/APAP 10/325 TABLET PO PRN ×2 (17:54→21:54)
[2022-05-12] MEDS: Apixaban 5 MG TABLET PO SCH (20:51)
[2022-05-12] MEDS: allopurinoL 100 MG TABLET PO SCH (20:51)
[2022-05-13] MEDS: *HR* OxyCODONE/APAP 10/325 TABLET PO PRN ×5 (01:56→20:15)
[2022-05-13 02:16] LABS: Basophils % 0.6 %; Eosinophils # 0.1 K/mcL (0.0-0.6); Eosinophils % 1.1 %; Hematocrit 47.5 % (37.5-50.1); Hemoglobin 14.4 g/dL (12.9-16.9); Immature Granulocytes % 1.7 % (0-4); Lymphocytes # 1.3 K/mcL (0.6-4.6); Mean Corpuscular HGB Conc 30.3 g/dL (31.6-35.5); Mean Corpuscular Hemoglobin 29.4 pg (28.0-33.3); Mean Corpuscular Volume 97.1 fL (83.0-100.0); Mean Platelet Volume 9.3 fL (9.4-12.4); Monocytes # 0.7 K/mcL (0.0-1.3); Monocytes % 11.4 %; Nucleated Red Blood Cells 1.3 /100 WBC (0); Platelet Count 191 K/mcL (140-400); Red Blood Count 4.89 M/mcL (4.19-5.50); Red Cell Distribution Width 14.8 % (11.5-14.5); Segmented Neutrophils % 64.2 %; White Blood Count 6.3 K/mcL (4.3-11.1)
[2022-05-13 02:44] LABS: Troponin I 0.04 ng/mL (< 0.04)
[2022-05-13 02:47] LABS: Calcium 9.5 mg/dL (8.6-10.3); Magnesium 1.6 mg/dL (1.6-2.6); Potassium 3.5 mEq/L (3.5-5.1)
[2022-05-13] MEDS: Ipratropium/Albuterol Neb 3 ML IH SCH ×4 (04:19→22:14)
[2022-05-13] MEDS: Apixaban 5 MG TABLET PO SCH ×2 (07:51→20:24)
[2022-05-13] MEDS: DilTIAZem CD (24hr) 240 MG CAP.ER.24H PO SCH (07:51)
[2022-05-13] MEDS: allopurinoL 100 MG TABLET PO SCH ×2 (07:51→20:24)
[2022-05-13] MEDS: Insulin LISPRO 300 UNITS/3 ML VIAL SUBQ SCH ×4 (07:52→20:13)
[2022-05-13] MEDS ORDERED: Furosemide 40 MG/4 ML VIAL IVP SCH (08:00)
[2022-05-13] MEDS ORDERED: hydrOXYzine pamoate 25 MG CAPSULE PO PRN (08:06)
[2022-05-13] MEDS ORDERED: rOPINIRole 1 MG TABLET PO SCH (09:00)
[2022-05-13] MEDS ORDERED: Furosemide 40 MG/4 ML VIAL IVP ONE (09:29)
[2022-05-13] MEDS ORDERED: Tiotropium 10 INH DOSE IH SCH (10:00)
[2022-05-13] MEDS ORDERED: Amiodarone Premix 360 MG/200 ML BAG IVC ONE ×2 (10:24→15:20)
[2022-05-13] MEDS ORDERED: Furosemide 480 MG in 0.9 % Sodium Chloride 192 ML IVC SCH (10:30)
[2022-05-13] MEDS: Isosorbide MONOnitrate (24 HR) 30 MG TAB.ER.24H PO SCH (10:37)
[2022-05-13] MEDS: predniSONE 10 MG TABLET PO SCH (10:38)
[2022-05-13] MEDS: Gabapentin 300 MG CAPSULE PO SCH ×2 (10:38→20:24)
[2022-05-13] MEDS: Budesonide/Formoterol 160/4.5 1 PUFF INH IH SCH ×2 (10:41→22:14)
[2022-05-13] MEDS: Amiodarone Premix 150 MG/100 ML BAG IVPB ONE ×2 (13:13→17:49)
[2022-05-13] MEDS ORDERED: Amiodarone Premix 150 MG/100 ML BAG IVPB ONE ×2 (14:15→15:20)
[2022-05-13] MEDS: Metoprolol XL (24 HR) Succ 50 MG TAB.ER.24H PO SCH (14:46)
[2022-05-13] MEDS ORDERED: Amiodarone Premix 360 MG/200 ML BAG IVC SCH (16:25)
[2022-05-13 18:34] LABS: Calcium 9.4 mg/dL (8.6-10.3); Potassium 3.8 mEq/L (3.5-5.1)
[2022-05-13] MEDS: Furosemide 240 MG in 0.9 % Sodium Chloride 96 ML IVC SCH (20:23)
[2022-05-13] MEDS: Amiodarone Premix 360 MG/200 ML BAG IVC SCH (23:05)
[2022-05-13] MEDS: Fluticasone Propionate Nasal 50 MCG/SPRAY BOTTLE NS PRN (23:05)
[2022-05-14] MEDS: *HR* OxyCODONE/APAP 10/325 TABLET PO PRN ×5 (02:47→22:34)
[2022-05-14] MEDS: Ipratropium/Albuterol Neb 3 ML IH SCH ×4 (03:14→22:09)
[2022-05-14 03:37] LABS: Basophils % 0.6 %; Eosinophils # 0.2 K/mcL (0.0-0.6); Eosinophils % 2.2 %; Hematocrit 47.2 % (37.5-50.1); Hemoglobin 14.5 g/dL (12.9-16.9); Immature Granulocytes % 0.7 % (0-4); Lymphocytes # 1.5 K/mcL (0.6-4.6); Lymphocytes % 21.7 %; Mean Corpuscular HGB Conc 30.7 g/dL (31.6-35.5); Mean Corpuscular Hemoglobin 29.4 pg (28.0-33.3); Mean Corpuscular Volume 95.5 fL (83.0-100.0); Mean Platelet Volume 9.3 fL (9.4-12.4); Monocytes # 0.6 K/mcL (0.0-1.3); Monocytes % 8.7 %; Neutrophils # 4.5 K/mcL (1.6-8.9); Nucleated Red Blood Cells 0.4 /100 WBC (0); Platelet Count 173 K/mcL (140-400); Red Blood Count 4.94 M/mcL (4.19-5.50); Red Cell Distribution Width 14.7 % (11.5-14.5); Segmented Neutrophils % 66.1 %; White Blood Count 6.8 K/mcL (4.3-11.1)
[2022-05-14 03:59] LABS: Calcium 9.1 mg/dL (8.6-10.3); Potassium 3.7 mEq/L (3.5-5.1)
[2022-05-14] MEDS: Insulin LISPRO 300 UNITS/3 ML VIAL SUBQ SCH ×4 (09:08→21:01)
[2022-05-14] MEDS: Apixaban 5 MG TABLET PO SCH ×2 (09:10→21:00)
[2022-05-14] MEDS: Gabapentin 300 MG CAPSULE PO SCH ×2 (09:10→21:01)
[2022-05-14] MEDS: allopurinoL 100 MG TABLET PO SCH ×2 (09:10→21:01)
[2022-05-14] MEDS: DilTIAZem CD (24hr) 240 MG CAP.ER.24H PO SCH (09:10)
[2022-05-14] MEDS: Metoprolol XL (24 HR) Succ 50 MG TAB.ER.24H PO SCH (09:10)
[2022-05-14] MEDS: Isosorbide MONOnitrate (24 HR) 30 MG TAB.ER.24H PO SCH (09:11)
[2022-05-14] MEDS: Amiodarone Premix 360 MG/200 ML BAG IVC SCH ×2 (10:03→22:07)
[2022-05-14] MEDS: Budesonide/Formoterol 160/4.5 1 PUFF INH IH SCH ×2 (10:47→22:09)
[2022-05-14] MEDS: Furosemide 240 MG in 0.9 % Sodium Chloride 96 ML IVC SCH (15:17)
[2022-05-14] MEDS ORDERED: Albuterol 2.5 MG/3 ML NEBULIZER IH PRN (18:18)
[2022-05-14] MEDS: rOPINIRole 1 MG TABLET PO SCH (21:00)
[2022-05-15] MEDS: Ipratropium/Albuterol Neb 3 ML IH SCH ×4 (03:09→21:20)
[2022-05-15] MEDS: *HR* OxyCODONE/APAP 10/325 TABLET PO PRN ×2 (04:53→08:13)
[2022-05-15 05:17] LABS: Basophils # 0.1 K/mcL (0.0-0.2); Basophils % 0.8 %; Eosinophils # 0.2 K/mcL (0.0-0.6); Eosinophils % 2.8 %; Hematocrit 47.5 % (37.5-50.1); Hemoglobin 14.5 g/dL (12.9-16.9); Immature Granulocytes % 0.7 % (0-4); Lymphocytes # 1.4 K/mcL (0.6-4.6); Lymphocytes % 19.3 %; Mean Corpuscular HGB Conc 30.5 g/dL (31.6-35.5); Mean Corpuscular Hemoglobin 28.9 pg (28.0-33.3); Mean Corpuscular Volume 94.6 fL (83.0-100.0); Mean Platelet Volume 9.5 fL (9.4-12.4); Monocytes # 0.6 K/mcL (0.0-1.3); Monocytes % 8.2 %; Neutrophils # 4.9 K/mcL (1.6-8.9); Platelet Count 163 K/mcL (140-400); Red Blood Count 5.02 M/mcL (4.19-5.50); Red Cell Distribution Width 14.6 % (11.5-14.5); Segmented Neutrophils % 68.2 %; White Blood Count 7.2 K/mcL (4.3-11.1)
[2022-05-15 05:38] LABS: Calcium 9.2 mg/dL (8.6-10.3); Magnesium 1.2 mg/dL (1.6-2.6); Potassium 3.7 mEq/L (3.5-5.1)
[2022-05-15] MEDS ORDERED: acetaZOLAMIDE 250 MG in Water for inj. (sterile) 2.5 ML IVP ONE (06:26)
[2022-05-15] MEDS: Apixaban 5 MG TABLET PO SCH ×2 (08:15→21:20)
[2022-05-15] MEDS: Metoprolol XL (24 HR) Succ 50 MG TAB.ER.24H PO SCH (08:15)
[2022-05-15] MEDS: DilTIAZem CD (24hr) 240 MG CAP.ER.24H PO SCH (08:17)
[2022-05-15] MEDS: allopurinoL 100 MG TABLET PO SCH ×2 (08:18→21:20)
[2022-05-15] MEDS: Isosorbide MONOnitrate (24 HR) 30 MG TAB.ER.24H PO SCH (08:18)
[2022-05-15] MEDS: Gabapentin 300 MG CAPSULE PO SCH ×2 (08:18→21:19)
[2022-05-15] MEDS: Insulin LISPRO 300 UNITS/3 ML VIAL SUBQ SCH ×4 (08:19→21:20)
[2022-05-15] MEDS: Budesonide/Formoterol 160/4.5 1 PUFF INH IH SCH ×2 (08:37→21:20)
[2022-05-15] MEDS: Amiodarone Premix 360 MG/200 ML BAG IVC SCH ×2 (10:25→21:19)
[2022-05-15] MEDS ORDERED: Saline Nasal Spray 44 ML BOTTLE NS PRN (10:28)
[2022-05-15] MEDS: predniSONE 10 MG TABLET PO SCH (12:20)
[2022-05-15] MEDS: *HR* OxyCODONE/APAP 10/325 TABLET PO SCH ×3 (12:20→21:19)
[2022-05-15] MEDS: Furosemide 240 MG in 0.9 % Sodium Chloride 96 ML IVC SCH (16:04)
[2022-05-15 16:31] LABS: Calcium 9.5 mg/dL (8.6-10.3); Potassium 4.2 mEq/L (3.5-5.1)
[2022-05-15] MEDS: rOPINIRole 1 MG TABLET PO SCH (21:20)
[2022-05-16] MEDS: *HR* OxyCODONE/APAP 10/325 TABLET PO SCH ×7 (01:02→23:55)
[2022-05-16] MEDS: Ipratropium/Albuterol Neb 3 ML IH SCH ×4 (03:57→21:19)
[2022-05-16 05:59] LABS: Calcium 9.3 mg/dL (8.6-10.3); Potassium 3.9 mEq/L (3.5-5.1)
[2022-05-16] MEDS: Insulin LISPRO 300 UNITS/3 ML VIAL SUBQ SCH ×4 (08:39→22:08)
[2022-05-16] MEDS: DilTIAZem CD (24hr) 240 MG CAP.ER.24H PO SCH (08:51)
[2022-05-16] MEDS: Apixaban 5 MG TABLET PO SCH ×2 (08:51→20:30)
[2022-05-16] MEDS: Metoprolol XL (24 HR) Succ 50 MG TAB.ER.24H PO SCH (08:52)
[2022-05-16] MEDS: Isosorbide MONOnitrate (24 HR) 30 MG TAB.ER.24H PO SCH (08:52)
[2022-05-16] MEDS: Gabapentin 300 MG CAPSULE PO SCH (08:52)
[2022-05-16] MEDS: allopurinoL 100 MG TABLET PO SCH ×2 (08:52→20:31)
[2022-05-16] MEDS: Amiodarone Premix 360 MG/200 ML BAG IVC SCH ×2 (08:56→20:29)
[2022-05-16] MEDS: Budesonide/Formoterol 160/4.5 1 PUFF INH IH SCH ×2 (10:00→21:19)
[2022-05-16] MEDS ORDERED: acetaZOLAMIDE 250 MG in Water for inj. (sterile) 2.5 ML IVP ONE (11:41)
[2022-05-16] MEDS: Furosemide 240 MG in 0.9 % Sodium Chloride 96 ML IVC SCH (12:13)
[2022-05-16] MEDS ORDERED: 0.9 % Sodium Chloride 500 ML IVC SCH (15:30)
[2022-05-16] MEDS: *HR* Midazolam HCl 5 MG/5 ML VIAL IVP PRN ×2 (16:10→16:15)
[2022-05-16] MEDS: *HR* FentaNYL (PF) 100 MCG/2 ML VIAL IVP PRN ×2 (16:10→16:15)
[2022-05-16] MEDS: rOPINIRole 1 MG TABLET PO SCH (20:30)
[2022-05-16] MEDS: Gabapentin 100 MG CAPSULE PO SCH (20:31)
[2022-05-17] MEDS: *HR* OxyCODONE/APAP 10/325 TABLET PO SCH ×6 (01:00→23:47)
[2022-05-17] MEDS: Ipratropium/Albuterol Neb 3 ML IH SCH ×4 (03:40→21:07)
[2022-05-17 05:45] LABS: Basophils # 0.1 K/mcL (0.0-0.2); Basophils % 0.8 %; Eosinophils # 0.3 K/mcL (0.0-0.6); Eosinophils % 3.9 %; Hemoglobin 13.4 g/dL (12.9-16.9); Immature Granulocytes % 0.7 % (0-4); Lymphocytes # 1.1 K/mcL (0.6-4.6); Mean Corpuscular HGB Conc 30.5 g/dL (31.6-35.5); Mean Corpuscular Hemoglobin 28.6 pg (28.0-33.3); Mean Platelet Volume 10.2 fL (9.4-12.4); Monocytes # 0.6 K/mcL (0.0-1.3); Monocytes % 8.7 %; Platelet Count 146 K/mcL (140-400); Red Blood Count 4.68 M/mcL (4.19-5.50); Red Cell Distribution Width 14.5 % (11.5-14.5); Segmented Neutrophils % 69.9 %; White Blood Count 7.1 K/mcL (4.3-11.1)
[2022-05-17 07:35] LABS: Calcium 8.6 mg/dL (8.6-10.3); Potassium 4.2 mEq/L (3.5-5.1)
[2022-05-17] MEDS: Gabapentin 100 MG CAPSULE PO SCH ×2 (08:16→20:05)
[2022-05-17] MEDS: Metoprolol XL (24 HR) Succ 50 MG TAB.ER.24H PO SCH (08:16)
[2022-05-17] MEDS: predniSONE 10 MG TABLET PO SCH (08:16)
[2022-05-17] MEDS: DilTIAZem CD (24hr) 240 MG CAP.ER.24H PO SCH (08:17)
[2022-05-17] MEDS: Isosorbide MONOnitrate (24 HR) 30 MG TAB.ER.24H PO SCH (08:17)
[2022-05-17] MEDS: allopurinoL 100 MG TABLET PO SCH ×2 (08:18→20:06)
[2022-05-17] MEDS: Apixaban 5 MG TABLET PO SCH ×2 (08:18→20:05)
[2022-05-17] MEDS: Insulin LISPRO 300 UNITS/3 ML VIAL SUBQ SCH ×4 (08:20→20:06)
[2022-05-17] MEDS: Amiodarone Premix 360 MG/200 ML BAG IVC SCH (09:00)
[2022-05-17 09:56] LABS: Magnesium 2.2 mg/dL (1.6-2.6); Uric Acid 12.1 mg/dL (2.3-7.6)
[2022-05-17] MEDS: Budesonide/Formoterol 160/4.5 1 PUFF INH IH SCH ×2 (10:06→21:07)
[2022-05-17 14:41] LABS: Hepatitis B Surface Antigen Nonreactive (Nonreactive)
[2022-05-17 15:10] LABS: Hepatitis B Core IgM Nonreactive (Nonreactive); Hepatitis C Virus Antibody Nonreactive (Nonreactive)
[2022-05-17 15:12] LABS: Hepatitis A Antibody IgM Nonreactive (Nonreactive)
[2022-05-17 16:25] LABS: Bacteria,Urine Moderate per hpf (None-Few); Bilirubin,Urine Negative (Negative); Blood,Urine Large (Negative); Clarity,Urine Turbid (Clear); Color,Urine Yellow (Yellow); Glucose,Urine (UA) Normal (Normal); Ketones,Urine Negative (Negative); Leukocyte Esterase,Urine Large (Negative); Mucus,Urine Few per lpf (None-Few); Nitrite,Urine Negative (Negative); PH,Urine 6.5 pH Units (5.0-8.0); Protein,Urine 50 mg/dL (Neg-Trace); RBC,Urine TNTC per hpf (0-3); Specific Gravity,Urine 1.022 (1.010-1.025); Urobilinogen,Urine Normal (Normal); WBC,Urine 50-100 per hpf (0-3)
[2022-05-17] MEDS: *HR* Amiodarone 200 MG TABLET PO SCH (20:06)
[2022-05-17] MEDS: rOPINIRole 1 MG TABLET PO SCH (20:06)
[2022-05-18 03:41] LABS: Hematocrit 43.1 % (37.5-50.1); Hemoglobin 12.8 g/dL (12.9-16.9); Mean Corpuscular HGB Conc 29.7 g/dL (31.6-35.5); Mean Corpuscular Hemoglobin 28.4 pg (28.0-33.3); Mean Corpuscular Volume 95.8 fL (83.0-100.0); Mean Platelet Volume 9.9 fL (9.4-12.4); Platelet Count 150 K/mcL (140-400); White Blood Count 7.3 K/mcL (4.3-11.1)
[2022-05-18] MEDS: *HR* OxyCODONE/APAP 10/325 TABLET PO SCH ×5 (03:54→20:22)
[2022-05-18 04:01] LABS: Calcium 9.4 mg/dL (8.6-10.3); Potassium 3.9 mEq/L (3.5-5.1)
[2022-05-18] MEDS: Ipratropium/Albuterol Neb 3 ML IH SCH ×4 (04:02→21:06)
[2022-05-18] MEDS: Isosorbide MONOnitrate (24 HR) 30 MG TAB.ER.24H PO SCH (08:11)
[2022-05-18] MEDS: allopurinoL 100 MG TABLET PO SCH ×2 (08:13→20:23)
[2022-05-18] MEDS: Apixaban 5 MG TABLET PO SCH ×2 (08:13→20:23)
[2022-05-18] MEDS: Gabapentin 100 MG CAPSULE PO SCH ×2 (08:13→20:23)
[2022-05-18] MEDS: DilTIAZem CD (24hr) 240 MG CAP.ER.24H PO SCH (08:15)
[2022-05-18] MEDS: *HR* Amiodarone 200 MG TABLET PO SCH ×2 (08:15→20:23)
[2022-05-18] MEDS: Insulin LISPRO 300 UNITS/3 ML VIAL SUBQ SCH ×4 (08:16→20:22)
[2022-05-18] MEDS: Metoprolol XL (24 HR) Succ 50 MG TAB.ER.24H PO SCH ×2 (09:39→11:36)
[2022-05-18] MEDS: Budesonide/Formoterol 160/4.5 1 PUFF INH IH SCH ×2 (11:28→21:06)
[2022-05-18 11:51] LABS: ABG Base Excess 8 mEq/L (-2 to 3); ABG HCO3 34 mEq/L (21-27); ABG Oxygen Saturation 91 % (95-98); ABG PCO2 50 mmHg (35-45); ABG PH 7.44 pH Units (7.32-7.45); ABG PO2 60 mmHg (85-104); ABG TCO2 35 mEq/L (20-26)
[2022-05-18] MEDS: rOPINIRole 1 MG TABLET PO SCH (20:22)
[2022-05-18] MEDS: Fluticasone Propionate Nasal 50 MCG/SPRAY BOTTLE NS PRN (20:23)
[2022-05-19] MEDS: traZODone 50 MG TABLET PO SCH ×2 (00:04→21:17)
[2022-05-19] MEDS: *HR* OxyCODONE/APAP 10/325 TABLET PO SCH ×6 (00:05→21:13)
[2022-05-19] MEDS: Ipratropium/Albuterol Neb 3 ML IH SCH ×4 (03:57→21:22)
[2022-05-19 05:17] LABS: Hematocrit 41.4 % (37.5-50.1); Hemoglobin 13.1 g/dL (12.9-16.9); Mean Corpuscular HGB Conc 31.6 g/dL (31.6-35.5); Mean Corpuscular Hemoglobin 30.3 pg (28.0-33.3); Mean Corpuscular Volume 95.6 fL (83.0-100.0); Mean Platelet Volume 10.1 fL (9.4-12.4); Platelet Count 180 K/mcL (140-400); Red Blood Count 4.33 M/mcL (4.19-5.50); Red Cell Distribution Width 13.8 % (11.5-14.5); White Blood Count 7.3 K/mcL (4.3-11.1)
[2022-05-19 05:38] LABS: Calcium 9.6 mg/dL (8.6-10.3); Potassium 3.6 mEq/L (3.5-5.1)
[2022-05-19] MEDS: Apixaban 5 MG TABLET PO SCH ×2 (08:06→21:19)
[2022-05-19] MEDS: Metoprolol XL (24 HR) Succ 50 MG TAB.ER.24H PO SCH (08:06)
[2022-05-19] MEDS: allopurinoL 100 MG TABLET PO SCH ×2 (08:06→21:17)
[2022-05-19] MEDS: Isosorbide MONOnitrate (24 HR) 30 MG TAB.ER.24H PO SCH (08:07)
[2022-05-19] MEDS: Gabapentin 100 MG CAPSULE PO SCH ×2 (08:07→21:14)
[2022-05-19] MEDS: polyethylene glycoL 3350 17 GM POWD.PACK PO SCH (08:09)
[2022-05-19] MEDS: *HR* Amiodarone 200 MG TABLET PO SCH ×2 (08:09→21:19)
[2022-05-19] MEDS: DilTIAZem CD (24hr) 240 MG CAP.ER.24H PO SCH (08:09)
[2022-05-19] MEDS: Insulin LISPRO 300 UNITS/3 ML VIAL SUBQ SCH ×4 (08:10→21:20)
[2022-05-19] MEDS: Budesonide/Formoterol 160/4.5 1 PUFF INH IH SCH ×2 (10:48→21:22)
[2022-05-19] MEDS ORDERED: Methylnaltrexone 12 MG/0.6 ML SYRINGE SQ ONE (11:17)
[2022-05-19] MEDS: predniSONE 10 MG TABLET PO SCH (11:59)
[2022-05-19] MEDS: Torsemide 20 MG TABLET PO SCH (21:18)
[2022-05-19] MEDS: rOPINIRole 1 MG TABLET PO SCH (21:18)
[2022-05-20] MEDS: *HR* OxyCODONE/APAP 10/325 TABLET PO SCH ×6 (00:13→21:41)
[2022-05-20] MEDS: Ipratropium/Albuterol Neb 3 ML IH SCH ×4 (03:35→22:26)
[2022-05-20 04:51] LABS: Albumin 3.9 g/dL (3.5-5.7); Albumin/Globulin Ratio 1.4 (1.1-2.2); Bilirubin,Direct 0.1 mg/dL (0.0-0.2); Bilirubin,Indirect 0.3 mg/dL (0.0-1.0); Bilirubin,Total 0.4 mg/dL (0.3-1.0); Globulin 2.7 g/dL (2.4-3.5); Potassium 3.8 mEq/L (3.5-5.1); Total Protein 6.6 g/dL (6.4-8.9)
[2022-05-20] MEDS: Apixaban 5 MG TABLET PO SCH ×2 (07:18→21:51)
[2022-05-20] MEDS: Gabapentin 100 MG CAPSULE PO SCH ×2 (07:18→21:44)
[2022-05-20] MEDS: Isosorbide MONOnitrate (24 HR) 30 MG TAB.ER.24H PO SCH (07:18)
[2022-05-20] MEDS: *HR* Amiodarone 200 MG TABLET PO SCH ×2 (07:19→21:44)
[2022-05-20] MEDS: Torsemide 20 MG TABLET PO SCH ×2 (07:19→21:55)
[2022-05-20] MEDS: allopurinoL 100 MG TABLET PO SCH ×2 (07:19→21:43)
[2022-05-20] MEDS: Metoprolol XL (24 HR) Succ 50 MG TAB.ER.24H PO SCH (07:19)
[2022-05-20] MEDS: Insulin LISPRO 300 UNITS/3 ML VIAL SUBQ SCH ×4 (07:21→21:52)
[2022-05-20] MEDS: polyethylene glycoL 3350 17 GM POWD.PACK PO SCH (07:26)
[2022-05-20] MEDS: Budesonide/Formoterol 160/4.5 1 PUFF INH IH SCH ×2 (10:00→21:46)
[2022-05-20] MEDS: DilTIAZem CD (24hr) 180 MG CAP.ER.24H PO SCH (10:25)
[2022-05-20] MEDS: Sennosides/Docusate Sodium TABLET PO SCH ×2 (14:23→21:44)
[2022-05-20] MEDS: rOPINIRole 1 MG TABLET PO SCH (21:41)
[2022-05-20] MEDS: traZODone 50 MG TABLET PO SCH (21:44)
[2022-05-21] MEDS: *HR* OxyCODONE/APAP 10/325 TABLET PO SCH ×5 (01:38→15:39)
[2022-05-21 02:33] LABS: Calcium 9.4 mg/dL (8.6-10.3); Potassium 3.6 mEq/L (3.5-5.1)
[2022-05-21] MEDS: Ipratropium/Albuterol Neb 3 ML IH SCH ×3 (03:40→15:24)
[2022-05-21] MEDS: Insulin LISPRO 300 UNITS/3 ML VIAL SUBQ SCH ×3 (08:32→15:28)
[2022-05-21] MEDS: polyethylene glycoL 3350 17 GM POWD.PACK PO SCH (08:33)
[2022-05-21] MEDS: Metoprolol XL (24 HR) Succ 50 MG TAB.ER.24H PO SCH (08:34)
[2022-05-21] MEDS: Sennosides/Docusate Sodium TABLET PO SCH (08:34)
[2022-05-21] MEDS: allopurinoL 100 MG TABLET PO SCH (08:34)
[2022-05-21] MEDS: predniSONE 10 MG TABLET PO SCH (08:34)
[2022-05-21] MEDS: Gabapentin 100 MG CAPSULE PO SCH (08:34)
[2022-05-21] MEDS: *HR* Amiodarone 200 MG TABLET PO SCH (08:37)
[2022-05-21] MEDS: Isosorbide MONOnitrate (24 HR) 30 MG TAB.ER.24H PO SCH (08:37)
[2022-05-21] MEDS: DilTIAZem CD (24hr) 180 MG CAP.ER.24H PO SCH (08:37)
[2022-05-21] MEDS: Apixaban 5 MG TABLET PO SCH (08:37)
[2022-05-21] MEDS: Torsemide 20 MG TABLET PO SCH (08:38)
[2022-05-21] MEDS: Budesonide/Formoterol 160/4.5 1 PUFF INH IH SCH (09:23)
[2022-05-21 10:57] VITALS: BP 111/53; PULSE 76; TEMP 98.3
[2022-05-21 15:42] VITALS: O2SAT 88
== END 2022-05-21 16:53 | disposition home or self-care (01) | DRG 280 ==
LOC: 2NENU 11:56 → EMEROOARM 11:56 → SUATTDRO 14:23 → 2NENU 15:03
PROVIDERS: ADMIT Internal Medicine; ATTEND Internal Medicine